=== PATIENT | male | born 1960 | race Caucasian/White ===

== ENCOUNTER 2017-07-31 02:44 | Day surgery (SDC) | payer MEDICARE, SELFPAY ==
[~2017-07-31] VITALS: Ht 193 cm; Wt 159.0 kg
[~2017-07-31 02:44] MED LIST: ACTOS; ASPI325 PO; ASPI81CH PO; ATOR40TA PO; ATOR80 PO; Abilify5 MG; BP PILL; Bactrim Ds Tab1 EACH PO; CEFU500 PO; CLIN300 PO; CLOP75 PO; FAMO20 PO; GABA300 PO; GLIP10 PO; GLIP5 PO; HYDACE10B PO; HYDACE5 PO; HYDACE7.5 PO; HYDCHL25 PO; HYDR1TAB94 PO; INSU100I6 SC; LEVEMIR FL100 UNIT/1 SC; LISHYD1012 PO; LOSA50 PO; Lacri-Lube S.O3.5 GM LEFTEYE; Lisinopril2.5 MG PO; MECL12.5 PO; METF500 PO; METO25 PO; Micro-K10 MEQ PO; NEBI5 PO; NITR.4SL SL; Norco 5-325 Ta1 EACH PO; OMEP20ER PO; OMEPRAZOLE MAGN20 MG PO; OXYC10TA19 PO; PANT20; PANT40 PO; PAXIL; PRAV20 PO; PRED20 PO; PSEU120ER PO; Percocet 7.5-31 EACH PO; Prilosec Otc20 MG; Prilosec Otc20 MG PO; SACC250C PO; SCOPTP TOP; SIMV40; SODCHL3.5O BOTHEYES; SPIR25 PO; SULTRIDS PO; VENL75ER PO; Valtrex1000 MG PO
[2017-07-31] MEDS ORDERED: PANT40 PO (10:45)
[2017-07-31] MEDS ORDERED: PREG75 PO (10:46)
[2017-07-31] MEDS ORDERED: DULO30 PO (10:46)
[2017-07-31 13:21] LABS: International Normalized Ratio 1.17; Prothrombin Time Results 12.2 Sec (9.7-11.5)
== END 2017-07-31 23:09 | disposition home or self-care (01) ==
LOC: MHTC 02:44 → LAB 02:44 → MHTC 12:53
PROVIDERS: Internal Medicine Interventional Cardiology
PROC: 065P3ZZ Destruction of Right Saphenous Vein, Percutaneous Approach (ICD-10-PCS; principal; 2017-07-31)
DX: I87.2 Venous insufficiency (chronic) (peripheral) (principal); E66.01 Morbid (severe) obesity due to excess calories; G47.33 Obstructive sleep apnea (adult) (pediatric); F41.9 Anxiety disorder, unspecified; F32.9 Major depressive disorder, single episode, unspecified; E11.42 Type 2 diabetes mellitus with diabetic polyneuropathy; I10 Essential (primary) hypertension; E78.5 Hyperlipidemia, unspecified; F17.210 Nicotine dependence, cigarettes, uncomplicated
CPT/HCPCS: 36415; 36475; 85610; 99152; C1769; C1888; C1894; J1644; J2250; J3010; J7040

== ENCOUNTER 2017-09-12 13:07 | Day surgery (SDC) | payer MEDICARE, SELFPAY ==
[~2017-09-12] VITALS: Ht 193 cm; Wt 157.0 kg
[~2017-09-12 13:07] MED LIST changes: +DULO30 PO; +PREG75 PO
[2017-09-12 13:34] LABS: International Normalized Ratio 1.12; Prothrombin Time Results 11.7 Sec (9.7-11.5)
== END 2017-09-12 22:53 | disposition home or self-care (01) ==
LOC: MHTC 13:07
PROVIDERS: Internal Medicine Interventional Cardiology
PROC: 065Q3ZZ Destruction of Left Saphenous Vein, Percutaneous Approach (ICD-10-PCS; principal; 2017-09-12)
DX: E11.51 Type 2 diabetes mellitus with diabetic peripheral angiopathy without gangrene (principal); I87.2 Venous insufficiency (chronic) (peripheral); E66.01 Morbid (severe) obesity due to excess calories; F41.9 Anxiety disorder, unspecified; F32.9 Major depressive disorder, single episode, unspecified; I10 Essential (primary) hypertension; E11.40 Type 2 diabetes mellitus with diabetic neuropathy, unspecified; F17.210 Nicotine dependence, cigarettes, uncomplicated
CPT/HCPCS: 36415; 36475; 85610; 99152; C1769; C1888; C1894; J1644; J2250; J3010; J7040

== ENCOUNTER 2017-12-23 13:25 | Emergency (ER) | payer MEDICARE ==
[~2017-12-23] VITALS: Ht 193 cm; Wt 167.8 kg
[~2017-12-23 13:25] MED LIST changes: +Augmentin 875-1 EACH PO
[2017-12-23 14:17] LABS: BASOPHILS ABSOLUTE AUTO 0.03 K/mm3 (0.00-0.23); BASOPHILS PERCENT AUTO 1 % (0-2); EOSINOPHILS ABSOLUTE AUTO 0.15 K/mm3 (0.00-0.68); EOSINOPHILS PERCENT AUTO 3 % (0-6); Hematocrit 42.2 % (37.0-53.0); Hemoglobin 13.9 g/dL (13.5-17.5); IMMATURE GRAN ABSOLUTE AUTO 0.01 K/mm3 (0.00-0.10); IMMATURE GRAN PERCENT AUTO 0 % (0-1); LYMPHOCYTES ABSOLUTE AUTO 1.24 K/mm3 (0.84-5.20); LYMPHOCYTES PERCENT AUTO 20 % (21-46); MONOCYTES ABSOLUTE AUTO 0.48 K/mm3 (0.16-1.47); MONOCYTES PERCENT AUTO 8 % (4-13); Mean Corpuscular HGB 29.7 pg (26.0-34.0); Mean Corpuscular HGB Conc 32.9 g/dL (31.5-36.5); Mean Corpuscular Volume 90 fL (80-100); Mean Platelet Volume 8.9 fL (9.1-12.4); NEUTROPHILS ABSOLUTE AUTO 4.16 K/mm3 (1.96-9.15); NEUTROPHILS PERCENT AUTO 69 % (41-73); Platelet Count 281 K/mm3 (150-400); RDW Coefficient Variation 13.6 % (11.7-14.2); RDW Standard Deviation 44.9 fL (35.1-46.3); Red Blood Cell Count 4.68 M/mm3 (4.30-5.90); White Blood Cell Count 6.07 K/mm3 (4.00-11.30)
[2017-12-23 14:33] LABS: Alanine Aminotransfer (ALT/SGP 18 U/L (12-78); Albumin, Blood 3.3 g/dL (3.4-5.0); Albumin/Globulin Ratio 0.8 (0.8-1.8); Alk Phos 101 U/L (50-136); Anion Gap 6 mmol/L (6-16); Aspartate Aminotrans (AST/SGOT 13 U/L (12-37); Bilirubin, Total 0.6 mg/dL (0.1-1.0); Blood Urea Nitrogen 18 mg/dL (8-24); Bun/Creatinine Ratio 20.5 (12.0-20.0); CO2, Blood 29 mmol/L (21-32); Calcium, Blood 8.3 mg/dL (8.5-10.1); Chloride, Blood 103 mmol/L (98-108); Creatinine, Blood 0.88 mg/dL (0.60-1.20); Globulin, Blood 4.1 g/dL (2.2-4.0); Glomerular Filtration Rate >60 (60-); Glucose, Blood 228 mg/dL (70-99); Potassium, Blood 4.2 mmol/L (3.5-5.5); Sodium, Blood 138 mmol/L (136-145); Total Protein, Blood 7.4 g/dL (6.4-8.2)
[2017-12-23 14:41] LABS: Source, Urine Clean Catch
[2017-12-23 14:44] LABS: Appearance, Urine Hazy (Clear); Bilirubin, Urine Neg (Neg); Blood, Urine 5+ (Neg); Color, Urine Yellow (P-Yellow); Glucose Qualitative, Urine Neg (Neg); Ketones, Urine Neg (Neg); Leukocyte Esterase, Urine 2+ (Neg); Nitrite, Urine Neg (Neg); Protein, Urine 3+ (Neg); Urobilinogen, Urine 1+ (Normal)
[2017-12-23 14:50] LABS: Bacteria Many /hpf; Squamous Epithelial Cells Few /hpf (Few); White Blood Cells, Urine TNTC /hpf (0-5)
[2017-12-23] MEDS ORDERED: KRATOM (15:55)
[2017-12-23] MEDS ORDERED: Keflex500 MG PO (16:09)
== END 2017-12-23 16:40 | disposition home or self-care (01) ==
LOC: ER 13:25
PROVIDERS: Emergency Medicine
DX: N39.0 Urinary tract infection, site not specified (principal); Z79.899 Other long term (current) drug therapy; Z79.82 Long term (current) use of aspirin; E11.40 Type 2 diabetes mellitus with diabetic neuropathy, unspecified; E66.01 Morbid (severe) obesity due to excess calories; F17.200 Nicotine dependence, unspecified, uncomplicated
CPT/HCPCS: 36415; 51798; 80053; 81001; 83690; 85025; 87077; 87086; 87186; 99283

== ENCOUNTER 2017-12-26 05:51 | Emergency (ER) | payer MEDICARE ==
[~2017-12-26] VITALS: Ht 193 cm; Wt 167.8 kg
[~2017-12-26 05:51] MED LIST changes: +KRATOM; +Keflex500 MG PO
[2017-12-26] MEDS ORDERED: NYST237S MT (06:37)
== END 2017-12-26 06:55 | disposition home or self-care (01) ==
LOC: ER 05:51
DX: J02.9 Acute pharyngitis, unspecified (principal); E11.40 Type 2 diabetes mellitus with diabetic neuropathy, unspecified; F17.200 Nicotine dependence, unspecified, uncomplicated; Z79.899 Other long term (current) drug therapy; Z79.82 Long term (current) use of aspirin
CPT/HCPCS: 87081; 99283

== ENCOUNTER 2017-12-29 16:08 | Emergency (ER) | payer MEDICARE ==
[~2017-12-29] VITALS: Ht 193 cm; Wt 167.8 kg
[~2017-12-29 16:08] MED LIST changes: +NYST237S MT
[2017-12-29] MEDS ORDERED: CEPH500 PO (17:25)
== END 2017-12-29 17:49 | disposition home or self-care (01) ==
LOC: ER 16:08
DX: S91.114A Laceration without foreign body of right lesser toe(s) without damage to nail, initial encounter (principal); W22.8XXA Striking against or struck by other objects, initial encounter; Z79.899 Other long term (current) drug therapy; Z79.82 Long term (current) use of aspirin; E66.9 Obesity, unspecified; E11.40 Type 2 diabetes mellitus with diabetic neuropathy, unspecified; F17.200 Nicotine dependence, unspecified, uncomplicated; Z68.42 Body mass index [BMI] 45.0-49.9, adult
CPT/HCPCS: 12001; 73660; 99282-25

== ENCOUNTER 2018-01-16 09:01 | Day surgery (SDC) | payer MEDICARE ==
[~2018-01-16 09:01] MED LIST changes: +CEPH500 PO
== END 2018-01-16 22:58 | disposition home or self-care (01) ==
LOC: RAD 09:01
DX: M54.5 Low back pain (principal); M47.816 Spondylosis without myelopathy or radiculopathy, lumbar region; Z95.0 Presence of cardiac pacemaker; Z98.1 Arthrodesis status
CPT/HCPCS: 62304; 72132; Q9966

== ENCOUNTER → 2018-08-07 | Outpatient (CLI) | payer MEDICARE ==
[2018-08-07 12:49] LABS: Source, Urine Clean Catch
[2018-08-07 14:14] LABS: Appearance, Urine Hazy (Clear); Bilirubin, Urine Neg (Neg); Blood, Urine 5+ (Neg); Color, Urine Yellow (P-Yellow); Glucose Qualitative, Urine Neg (Neg); Ketones, Urine Neg (Neg); Leukocyte Esterase, Urine 1+ (Neg); Nitrite, Urine Neg (Neg); Protein, Urine 1+ (Neg); Specific Gravity, Urine 1.015 (1.003-1.022); Urobilinogen, Urine 1+ (Normal)
[2018-08-07 15:10] LABS: Bacteria Few /hpf; Red Blood Cells, Urine 50-100 /hpf (0-2); Squamous Epithelial Cells Few /hpf (Few)
== END | disposition home or self-care (01) ==
LOC: LAB SHORT 12:46 → LAB 12:46
PROVIDERS: Family Medicine
DX: R31.9 Hematuria, unspecified (principal)
CPT/HCPCS: 81001; 87077; 87086; 87186

== ENCOUNTER 2020-03-30 08:53 | Day surgery (SDC) | payer MEDICARE | END 2020-03-30 13:30 | disposition home or self-care (01) | LOC: WOUND | DX: E11.621 Type 2 diabetes mellitus with foot ulcer (principal); E11.622 Type 2 diabetes mellitus with other skin ulcer; L97.521 Non-pressure chronic ulcer of other part of left foot limited to breakdown of skin; L97.312 Non-pressure chronic ulcer of right ankle with fat layer exposed; E11.42 Type 2 diabetes mellitus with diabetic polyneuropathy; M86.671 Other chronic osteomyelitis, right ankle and foot; E11.59 Type 2 diabetes mellitus with other circulatory complications; L97.812 Non-pressure chronic ulcer of other part of right lower leg with fat layer exposed; L97.822 Non-pressure chronic ulcer of other part of left lower leg with fat layer exposed; I10 Essential (primary) hypertension; K21.9 Gastro-esophageal reflux disease without esophagitis; G47.33 Obstructive sleep apnea (adult) (pediatric); Z79.899 Other long term (current) drug therapy; F17.210 Nicotine dependence, cigarettes, uncomplicated; Z79.82 Long term (current) use of aspirin | CPT/HCPCS: G0463 ==

== ENCOUNTER 2020-04-06 10:01 | Day surgery (SDC) | payer MEDICARE | END 2020-04-06 22:56 | disposition home or self-care (01) | LOC: WOUND 10:01 | DX: E11.621 Type 2 diabetes mellitus with foot ulcer (principal); E11.622 Type 2 diabetes mellitus with other skin ulcer; L97.421 Non-pressure chronic ulcer of left heel and midfoot limited to breakdown of skin; L97.312 Non-pressure chronic ulcer of right ankle with fat layer exposed; M86.671 Other chronic osteomyelitis, right ankle and foot; E11.59 Type 2 diabetes mellitus with other circulatory complications; L97.812 Non-pressure chronic ulcer of other part of right lower leg with fat layer exposed; L97.822 Non-pressure chronic ulcer of other part of left lower leg with fat layer exposed; K21.9 Gastro-esophageal reflux disease without esophagitis; G47.33 Obstructive sleep apnea (adult) (pediatric); I10 Essential (primary) hypertension; Z79.899 Other long term (current) drug therapy; Z79.82 Long term (current) use of aspirin ==

== ENCOUNTER 2020-04-13 00:25 | Day surgery (SDC) | payer MEDICARE | END 2020-04-13 22:58 | disposition home or self-care (01) | LOC: WOUND 00:25 | DX: E11.621 Type 2 diabetes mellitus with foot ulcer (principal); E11.622 Type 2 diabetes mellitus with other skin ulcer; L97.421 Non-pressure chronic ulcer of left heel and midfoot limited to breakdown of skin; L97.312 Non-pressure chronic ulcer of right ankle with fat layer exposed; E11.59 Type 2 diabetes mellitus with other circulatory complications; M86.671 Other chronic osteomyelitis, right ankle and foot; L97.812 Non-pressure chronic ulcer of other part of right lower leg with fat layer exposed; L97.822 Non-pressure chronic ulcer of other part of left lower leg with fat layer exposed; I10 Essential (primary) hypertension; K21.9 Gastro-esophageal reflux disease without esophagitis; G47.33 Obstructive sleep apnea (adult) (pediatric); I25.10 Atherosclerotic heart disease of native coronary artery without angina pectoris; E11.42 Type 2 diabetes mellitus with diabetic polyneuropathy; Z79.899 Other long term (current) drug therapy; Z79.82 Long term (current) use of aspirin ==

== ENCOUNTER 2020-04-22 00:32 | Day surgery (SDC) | payer MEDICARE | END 2020-04-22 23:15 | disposition home or self-care (01) | LOC: WOUND 00:32 | DX: E11.621 Type 2 diabetes mellitus with foot ulcer (principal); L97.422 Non-pressure chronic ulcer of left heel and midfoot with fat layer exposed; E11.622 Type 2 diabetes mellitus with other skin ulcer; L97.312 Non-pressure chronic ulcer of right ankle with fat layer exposed; L97.822 Non-pressure chronic ulcer of other part of left lower leg with fat layer exposed; E11.52 Type 2 diabetes mellitus with diabetic peripheral angiopathy with gangrene; I96 Gangrene, not elsewhere classified; E11.69 Type 2 diabetes mellitus with other specified complication; M86.8X7 Other osteomyelitis, ankle and foot; E11.36 Type 2 diabetes mellitus with diabetic cataract; E11.40 Type 2 diabetes mellitus with diabetic neuropathy, unspecified; E11.59 Type 2 diabetes mellitus with other circulatory complications; H26.9 Unspecified cataract; J32.9 Chronic sinusitis, unspecified; J44.9 Chronic obstructive pulmonary disease, unspecified; G47.30 Sleep apnea, unspecified; I49.9 Cardiac arrhythmia, unspecified; I25.10 Atherosclerotic heart disease of native coronary artery without angina pectoris; I10 Essential (primary) hypertension; M19.90 Unspecified osteoarthritis, unspecified site; Z79.82 Long term (current) use of aspirin; Z79.899 Other long term (current) drug therapy | CPT/HCPCS: G0463 ==

== ENCOUNTER 2020-04-29 06:39 | Day surgery (SDC) | payer MEDICARE | END 2020-04-29 22:52 | disposition home or self-care (01) | LOC: WOUND 06:39 | DX: E11.621 Type 2 diabetes mellitus with foot ulcer (principal); L97.422 Non-pressure chronic ulcer of left heel and midfoot with fat layer exposed; E11.622 Type 2 diabetes mellitus with other skin ulcer; L97.312 Non-pressure chronic ulcer of right ankle with fat layer exposed; L97.812 Non-pressure chronic ulcer of other part of right lower leg with fat layer exposed; L97.822 Non-pressure chronic ulcer of other part of left lower leg with fat layer exposed; E11.52 Type 2 diabetes mellitus with diabetic peripheral angiopathy with gangrene; I96 Gangrene, not elsewhere classified; E11.69 Type 2 diabetes mellitus with other specified complication; M86.8X7 Other osteomyelitis, ankle and foot; E11.59 Type 2 diabetes mellitus with other circulatory complications; E11.36 Type 2 diabetes mellitus with diabetic cataract; H26.9 Unspecified cataract; J44.9 Chronic obstructive pulmonary disease, unspecified; G47.30 Sleep apnea, unspecified; I25.10 Atherosclerotic heart disease of native coronary artery without angina pectoris; I10 Essential (primary) hypertension; M19.90 Unspecified osteoarthritis, unspecified site; E11.40 Type 2 diabetes mellitus with diabetic neuropathy, unspecified; Z79.82 Long term (current) use of aspirin; Z79.899 Other long term (current) drug therapy | CPT/HCPCS: G0463 ==

== ENCOUNTER 2020-05-13 00:30 | Day surgery (SDC) | payer MEDICARE | END 2020-05-13 22:46 | disposition home or self-care (01) | LOC: WOUND 00:30 | DX: E11.621 Type 2 diabetes mellitus with foot ulcer (principal); L97.422 Non-pressure chronic ulcer of left heel and midfoot with fat layer exposed; E11.622 Type 2 diabetes mellitus with other skin ulcer; L97.312 Non-pressure chronic ulcer of right ankle with fat layer exposed; L97.822 Non-pressure chronic ulcer of other part of left lower leg with fat layer exposed; E11.52 Type 2 diabetes mellitus with diabetic peripheral angiopathy with gangrene; I96 Gangrene, not elsewhere classified; E11.59 Type 2 diabetes mellitus with other circulatory complications; E11.42 Type 2 diabetes mellitus with diabetic polyneuropathy; E11.69 Type 2 diabetes mellitus with other specified complication; M86.8X9 Other osteomyelitis, unspecified sites; M54.5 Low back pain; E11.36 Type 2 diabetes mellitus with diabetic cataract; H26.9 Unspecified cataract; E78.1 Pure hyperglyceridemia; I10 Essential (primary) hypertension; G47.33 Obstructive sleep apnea (adult) (pediatric); I25.10 Atherosclerotic heart disease of native coronary artery without angina pectoris; K21.9 Gastro-esophageal reflux disease without esophagitis; F41.9 Anxiety disorder, unspecified; F32.9 Major depressive disorder, single episode, unspecified; M89.29 Other disorders of bone development and growth, multiple sites; J44.9 Chronic obstructive pulmonary disease, unspecified; M19.90 Unspecified osteoarthritis, unspecified site; G51.0 Bell's palsy; Z79.82 Long term (current) use of aspirin; Z79.899 Other long term (current) drug therapy; Z86.718 Personal history of other venous thrombosis and embolism ==

== ENCOUNTER 2020-05-20 00:25 | Day surgery (SDC) | payer MEDICARE | END 2020-05-20 22:49 | disposition home or self-care (01) | LOC: WOUND 00:25 | DX: E11.621 Type 2 diabetes mellitus with foot ulcer (principal); L97.421 Non-pressure chronic ulcer of left heel and midfoot limited to breakdown of skin; E11.622 Type 2 diabetes mellitus with other skin ulcer; L97.822 Non-pressure chronic ulcer of other part of left lower leg with fat layer exposed; L97.312 Non-pressure chronic ulcer of right ankle with fat layer exposed; G89.29 Other chronic pain; M54.5 Low back pain; E11.42 Type 2 diabetes mellitus with diabetic polyneuropathy; E78.1 Pure hyperglyceridemia; I10 Essential (primary) hypertension; G47.33 Obstructive sleep apnea (adult) (pediatric); I25.10 Atherosclerotic heart disease of native coronary artery without angina pectoris; G51.0 Bell's palsy; K21.9 Gastro-esophageal reflux disease without esophagitis | CPT/HCPCS: 87071; 87075; 87102; 87205; A9270 ==

== ENCOUNTER 2020-05-22 02:01 | Day surgery (SDC) | payer MEDICARE | END 2020-05-22 23:56 | disposition home or self-care (01) | LOC: WOUND 02:01 | DX: E11.621 Type 2 diabetes mellitus with foot ulcer (principal); L97.421 Non-pressure chronic ulcer of left heel and midfoot limited to breakdown of skin; E11.622 Type 2 diabetes mellitus with other skin ulcer; L97.312 Non-pressure chronic ulcer of right ankle with fat layer exposed; L97.822 Non-pressure chronic ulcer of other part of left lower leg with fat layer exposed; E11.59 Type 2 diabetes mellitus with other circulatory complications ==

== ENCOUNTER 2020-05-27 00:43 | Day surgery (SDC) | payer MEDICARE | END 2020-05-27 23:12 | disposition home or self-care (01) | LOC: WOUND 00:43 | DX: E11.621 Type 2 diabetes mellitus with foot ulcer (principal); L97.422 Non-pressure chronic ulcer of left heel and midfoot with fat layer exposed; E11.622 Type 2 diabetes mellitus with other skin ulcer; L97.312 Non-pressure chronic ulcer of right ankle with fat layer exposed; L97.222 Non-pressure chronic ulcer of left calf with fat layer exposed; L97.822 Non-pressure chronic ulcer of other part of left lower leg with fat layer exposed; E11.52 Type 2 diabetes mellitus with diabetic peripheral angiopathy with gangrene; I96 Gangrene, not elsewhere classified; E11.59 Type 2 diabetes mellitus with other circulatory complications; E11.42 Type 2 diabetes mellitus with diabetic polyneuropathy; E11.69 Type 2 diabetes mellitus with other specified complication; M86.8X9 Other osteomyelitis, unspecified sites; I10 Essential (primary) hypertension; E11.36 Type 2 diabetes mellitus with diabetic cataract; H26.9 Unspecified cataract; J44.9 Chronic obstructive pulmonary disease, unspecified; I25.10 Atherosclerotic heart disease of native coronary artery without angina pectoris; G47.33 Obstructive sleep apnea (adult) (pediatric); K21.9 Gastro-esophageal reflux disease without esophagitis; G89.29 Other chronic pain; M54.5 Low back pain; Z79.82 Long term (current) use of aspirin; Z79.899 Other long term (current) drug therapy | CPT/HCPCS: A9270 ==

== ENCOUNTER → 2020-05-30 | Outpatient (CLI) | payer MEDICARE ==
[~2020-05-30] MED LIST changes: +AMOCLA875 PO; +Roxicodone5 MG PO
[2020-05-30 12:56] LABS: BASOPHILS ABSOLUTE AUTO 0.03 K/mm3 (0.00-0.23); BASOPHILS PERCENT AUTO 1 % (0-2); EOSINOPHILS ABSOLUTE AUTO 0.12 K/mm3 (0.00-0.68); EOSINOPHILS PERCENT AUTO 2 % (0-6); Hematocrit 40.8 % (37.0-53.0); Hemoglobin 13.5 g/dL (13.5-17.5); IMMATURE GRAN ABSOLUTE AUTO 0.01 K/mm3 (0.00-0.10); IMMATURE GRAN PERCENT AUTO 0 % (0-1); LYMPHOCYTES ABSOLUTE AUTO 1.45 K/mm3 (0.84-5.20); LYMPHOCYTES PERCENT AUTO 25 % (21-46); MONOCYTES ABSOLUTE AUTO 0.35 K/mm3 (0.16-1.47); MONOCYTES PERCENT AUTO 6 % (4-13); Mean Corpuscular HGB 28.6 pg (26.0-34.0); Mean Corpuscular HGB Conc 33.1 g/dL (31.5-36.5); Mean Corpuscular Volume 86 fL (80-100); Mean Platelet Volume 8.9 fL (9.1-12.4); NEUTROPHILS ABSOLUTE AUTO 3.75 K/mm3 (1.96-9.15); NEUTROPHILS PERCENT AUTO 66 % (41-73); Platelet Count 324 K/mm3 (150-400); RDW Coefficient Variation 13.3 % (11.7-14.2); Red Blood Cell Count 4.72 M/mm3 (4.30-5.90); White Blood Cell Count 5.71 K/mm3 (4.00-11.30)
[2020-05-30 13:00] LABS: Anion Gap 4 mmol/L (6-16); Blood Urea Nitrogen 15 mg/dL (8-24); Bun/Creatinine Ratio 14.3 (12.0-20.0); CO2, Blood 30 mmol/L (21-32); Calcium, Blood 8.7 mg/dL (8.5-10.1); Chloride, Blood 93 mmol/L (98-108); Creatinine, Blood 1.05 mg/dL (0.60-1.20); Glomerular Filtration Rate >60 (60-); Glucose, Blood 353 mg/dL (70-99); Potassium, Blood 4.7 mmol/L (3.5-5.5); Sodium, Blood 127 mmol/L (136-145)
== END | disposition home or self-care (01) ==
LOC: LAB 12:48 → LAB SHORT 12:48
PROVIDERS: Physician Assistant Surgical
DX: R73.9 Hyperglycemia, unspecified (principal)
CPT/HCPCS: 80048; 83036; 85025

== ENCOUNTER 2020-06-02 00:21 | Day surgery (SDC) | payer MEDICARE ==
[~2020-06-02 00:21] MED LIST changes: -AMOCLA875 PO; -Roxicodone5 MG PO
== END 2020-06-02 22:54 | disposition home or self-care (01) ==
LOC: WOUND 00:21
DX: E11.621 Type 2 diabetes mellitus with foot ulcer (principal); E11.622 Type 2 diabetes mellitus with other skin ulcer; L97.421 Non-pressure chronic ulcer of left heel and midfoot limited to breakdown of skin; L97.312 Non-pressure chronic ulcer of right ankle with fat layer exposed; L97.822 Non-pressure chronic ulcer of other part of left lower leg with fat layer exposed; E11.59 Type 2 diabetes mellitus with other circulatory complications
CPT/HCPCS: A9270

== ENCOUNTER 2020-06-10 00:14 | Day surgery (SDC) | payer MEDICARE | END 2020-06-10 23:45 | disposition home or self-care (01) | LOC: WOUND 00:14 | DX: E11.621 Type 2 diabetes mellitus with foot ulcer (principal); L97.422 Non-pressure chronic ulcer of left heel and midfoot with fat layer exposed; E11.622 Type 2 diabetes mellitus with other skin ulcer; L97.312 Non-pressure chronic ulcer of right ankle with fat layer exposed; L97.221 Non-pressure chronic ulcer of left calf limited to breakdown of skin; E11.59 Type 2 diabetes mellitus with other circulatory complications; K21.9 Gastro-esophageal reflux disease without esophagitis; E11.42 Type 2 diabetes mellitus with diabetic polyneuropathy; I10 Essential (primary) hypertension; I25.10 Atherosclerotic heart disease of native coronary artery without angina pectoris; F41.8 Other specified anxiety disorders; Z87.81 Personal history of (healed) traumatic fracture; Z79.2 Long term (current) use of antibiotics | CPT/HCPCS: A9270 ==

== ENCOUNTER 2020-06-16 01:02 | Day surgery (SDC) | payer MEDICARE | END 2020-06-16 22:55 | disposition home or self-care (01) | LOC: WOUND 01:02 | DX: E11.621 Type 2 diabetes mellitus with foot ulcer (principal); E11.622 Type 2 diabetes mellitus with other skin ulcer; L97.422 Non-pressure chronic ulcer of left heel and midfoot with fat layer exposed; L97.221 Non-pressure chronic ulcer of left calf limited to breakdown of skin; L97.312 Non-pressure chronic ulcer of right ankle with fat layer exposed; E11.59 Type 2 diabetes mellitus with other circulatory complications; E11.42 Type 2 diabetes mellitus with diabetic polyneuropathy; I10 Essential (primary) hypertension; I25.10 Atherosclerotic heart disease of native coronary artery without angina pectoris; G47.33 Obstructive sleep apnea (adult) (pediatric); K21.9 Gastro-esophageal reflux disease without esophagitis; M54.5 Low back pain; F41.8 Other specified anxiety disorders; Z87.81 Personal history of (healed) traumatic fracture; Z79.2 Long term (current) use of antibiotics | CPT/HCPCS: 73630; A9270 ==

== ENCOUNTER 2020-06-23 01:12 | Day surgery (SDC) | payer MEDICARE | END 2020-06-23 23:50 | disposition home or self-care (01) | LOC: WOUND 01:12 | DX: E11.621 Type 2 diabetes mellitus with foot ulcer (principal); E11.622 Type 2 diabetes mellitus with other skin ulcer; L97.422 Non-pressure chronic ulcer of left heel and midfoot with fat layer exposed; L97.312 Non-pressure chronic ulcer of right ankle with fat layer exposed; L97.221 Non-pressure chronic ulcer of left calf limited to breakdown of skin; E11.42 Type 2 diabetes mellitus with diabetic polyneuropathy; I10 Essential (primary) hypertension; G47.33 Obstructive sleep apnea (adult) (pediatric); E78.1 Pure hyperglyceridemia; I25.10 Atherosclerotic heart disease of native coronary artery without angina pectoris; K21.9 Gastro-esophageal reflux disease without esophagitis; G51.0 Bell's palsy | CPT/HCPCS: A9270 ==

== ENCOUNTER 2020-07-01 00:28 | Day surgery (SDC) | payer MEDICARE | END 2020-07-01 22:50 | disposition home or self-care (01) | LOC: WOUND 00:28 | DX: E11.621 Type 2 diabetes mellitus with foot ulcer (principal); L97.422 Non-pressure chronic ulcer of left heel and midfoot with fat layer exposed; E11.622 Type 2 diabetes mellitus with other skin ulcer; L97.312 Non-pressure chronic ulcer of right ankle with fat layer exposed; E11.59 Type 2 diabetes mellitus with other circulatory complications; I10 Essential (primary) hypertension; E11.42 Type 2 diabetes mellitus with diabetic polyneuropathy | CPT/HCPCS: A9270 ==

== ENCOUNTER 2020-07-07 00:51 | Day surgery (SDC) | payer MEDICARE | END 2020-07-07 23:26 | disposition home or self-care (01) | LOC: WOUND 00:51 | DX: E11.621 Type 2 diabetes mellitus with foot ulcer (principal); L97.422 Non-pressure chronic ulcer of left heel and midfoot with fat layer exposed; E11.622 Type 2 diabetes mellitus with other skin ulcer; L97.312 Non-pressure chronic ulcer of right ankle with fat layer exposed; L97.822 Non-pressure chronic ulcer of other part of left lower leg with fat layer exposed; E11.59 Type 2 diabetes mellitus with other circulatory complications ==

== ENCOUNTER 2020-07-14 00:14 | Day surgery (SDC) | payer MEDICARE | END 2020-07-14 22:57 | disposition home or self-care (01) | LOC: WOUND 00:14 | DX: E11.621 Type 2 diabetes mellitus with foot ulcer (principal); L97.421 Non-pressure chronic ulcer of left heel and midfoot limited to breakdown of skin; L97.312 Non-pressure chronic ulcer of right ankle with fat layer exposed; E11.59 Type 2 diabetes mellitus with other circulatory complications; E11.42 Type 2 diabetes mellitus with diabetic polyneuropathy; I10 Essential (primary) hypertension; I25.10 Atherosclerotic heart disease of native coronary artery without angina pectoris; K21.9 Gastro-esophageal reflux disease without esophagitis; S62.309D Unspecified fracture of unspecified metacarpal bone, subsequent encounter for fracture with routine healing; X58.XXXD Exposure to other specified factors, subsequent encounter ==

== ENCOUNTER 2020-07-21 00:31 | Day surgery (SDC) | payer MEDICARE | END 2020-07-21 22:49 | disposition home or self-care (01) | LOC: WOUND 00:31 | DX: E11.621 Type 2 diabetes mellitus with foot ulcer (principal); E11.622 Type 2 diabetes mellitus with other skin ulcer; L97.422 Non-pressure chronic ulcer of left heel and midfoot with fat layer exposed; L97.312 Non-pressure chronic ulcer of right ankle with fat layer exposed; L97.822 Non-pressure chronic ulcer of other part of left lower leg with fat layer exposed; E11.42 Type 2 diabetes mellitus with diabetic polyneuropathy; E11.59 Type 2 diabetes mellitus with other circulatory complications; E78.1 Pure hyperglyceridemia; I10 Essential (primary) hypertension; G47.33 Obstructive sleep apnea (adult) (pediatric); I25.10 Atherosclerotic heart disease of native coronary artery without angina pectoris; K21.9 Gastro-esophageal reflux disease without esophagitis | CPT/HCPCS: 73650; A9270 ==

== ENCOUNTER 2020-07-31 02:05 | Day surgery (SDC) | payer MEDICARE | END 2020-07-31 22:48 | disposition home or self-care (01) | LOC: WOUND 02:05 | DX: E11.621 Type 2 diabetes mellitus with foot ulcer (principal); L97.422 Non-pressure chronic ulcer of left heel and midfoot with fat layer exposed; L97.512 Non-pressure chronic ulcer of other part of right foot with fat layer exposed; E11.622 Type 2 diabetes mellitus with other skin ulcer; L97.822 Non-pressure chronic ulcer of other part of left lower leg with fat layer exposed; E11.59 Type 2 diabetes mellitus with other circulatory complications ==

== ENCOUNTER 2020-08-09 18:51 | Emergency (ER) | payer MEDICARE ==
[~2020-08-09] VITALS: Ht 190.5 cm; Wt 147.4 kg
[2020-08-09] MEDS ORDERED: Roxicodone5 MG PO (22:57)
[2020-08-09] MEDS ORDERED: AMOCLA875 PO (22:57)
== END 2020-08-09 23:25 | disposition home or self-care (01) ==
LOC: ER 18:51
DX: S01.511A Laceration without foreign body of lip, initial encounter (principal); S03.2XXA Dislocation of tooth, initial encounter; Z79.82 Long term (current) use of aspirin; Z79.899 Other long term (current) drug therapy; W06.XXXA Fall from bed, initial encounter
CPT/HCPCS: 70486; 72125; 93005; 93010; 96374; 99285-25; A9270; J1170

== ENCOUNTER → 2021-03-11 | Outpatient (CLI) | payer MEDICARE ==
[~2021-03-11] MED LIST changes: +AMOCLA875 PO; +Roxicodone5 MG PO
== END ==
LOC: LAB SHORT 09:38 → LAB 09:38
DX: S51.802A Unspecified open wound of left forearm, initial encounter (principal)
CPT/HCPCS: 87070; 87075; 87205

== ENCOUNTER 2021-04-07 09:11 | Day surgery (SDC) | payer MEDICARE | END 2021-04-07 23:13 | disposition home or self-care (01) | LOC: WOUND 09:11 | DX: E11.622 Type 2 diabetes mellitus with other skin ulcer (principal); L97.812 Non-pressure chronic ulcer of other part of right lower leg with fat layer exposed; L97.312 Non-pressure chronic ulcer of right ankle with fat layer exposed; E11.621 Type 2 diabetes mellitus with foot ulcer; E11.59 Type 2 diabetes mellitus with other circulatory complications; I87.2 Venous insufficiency (chronic) (peripheral); E11.42 Type 2 diabetes mellitus with diabetic polyneuropathy; I10 Essential (primary) hypertension; I25.10 Atherosclerotic heart disease of native coronary artery without angina pectoris; K21.9 Gastro-esophageal reflux disease without esophagitis; G47.33 Obstructive sleep apnea (adult) (pediatric) | CPT/HCPCS: G0463 ==

== ENCOUNTER 2021-04-14 00:39 | Day surgery (SDC) | payer MEDICARE | END 2021-04-14 23:25 | disposition home or self-care (01) | LOC: WOUND 00:39 | DX: E11.621 Type 2 diabetes mellitus with foot ulcer (principal); L97.819 Non-pressure chronic ulcer of other part of right lower leg with unspecified severity; I87.2 Venous insufficiency (chronic) (peripheral) ==

== ENCOUNTER 2021-04-21 02:54 | Day surgery (SDC) | payer MEDICARE | END 2021-04-21 23:06 | disposition home or self-care (01) | LOC: WOUND 02:54 | DX: E11.622 Type 2 diabetes mellitus with other skin ulcer (principal); L97.312 Non-pressure chronic ulcer of right ankle with fat layer exposed; L97.812 Non-pressure chronic ulcer of other part of right lower leg with fat layer exposed; I87.2 Venous insufficiency (chronic) (peripheral); I10 Essential (primary) hypertension; E11.42 Type 2 diabetes mellitus with diabetic polyneuropathy; E78.1 Pure hyperglyceridemia; I25.10 Atherosclerotic heart disease of native coronary artery without angina pectoris | CPT/HCPCS: A9270 ==

== ENCOUNTER 2021-04-28 05:32 | Day surgery (SDC) | payer MEDICARE | END 2021-04-28 23:18 | disposition home or self-care (01) | LOC: WOUND 05:32 | DX: E11.622 Type 2 diabetes mellitus with other skin ulcer (principal); L97.312 Non-pressure chronic ulcer of right ankle with fat layer exposed; L97.812 Non-pressure chronic ulcer of other part of right lower leg with fat layer exposed; E11.621 Type 2 diabetes mellitus with foot ulcer; E11.59 Type 2 diabetes mellitus with other circulatory complications; I87.2 Venous insufficiency (chronic) (peripheral) ==

== ENCOUNTER 2021-05-12 05:58 | Day surgery (SDC) | payer MEDICARE | END 2021-05-12 23:44 | disposition home or self-care (01) | LOC: WOUND 05:58 | DX: E11.621 Type 2 diabetes mellitus with foot ulcer (principal); L97.812 Non-pressure chronic ulcer of other part of right lower leg with fat layer exposed; E11.622 Type 2 diabetes mellitus with other skin ulcer; L97.312 Non-pressure chronic ulcer of right ankle with fat layer exposed; I87.311 Chronic venous hypertension (idiopathic) with ulcer of right lower extremity; I87.2 Venous insufficiency (chronic) (peripheral); E11.59 Type 2 diabetes mellitus with other circulatory complications; I10 Essential (primary) hypertension; K21.9 Gastro-esophageal reflux disease without esophagitis; G47.33 Obstructive sleep apnea (adult) (pediatric); I25.10 Atherosclerotic heart disease of native coronary artery without angina pectoris ==

== ENCOUNTER 2021-07-12 05:59 | Day surgery (SDC) | payer MEDICARE | END 2021-07-12 23:31 | disposition home or self-care (01) | LOC: WOUND 05:59 | DX: E11.622 Type 2 diabetes mellitus with other skin ulcer (principal); L97.812 Non-pressure chronic ulcer of other part of right lower leg with fat layer exposed; L97.822 Non-pressure chronic ulcer of other part of left lower leg with fat layer exposed; E11.621 Type 2 diabetes mellitus with foot ulcer; E11.59 Type 2 diabetes mellitus with other circulatory complications; I87.311 Chronic venous hypertension (idiopathic) with ulcer of right lower extremity; I87.2 Venous insufficiency (chronic) (peripheral); I10 Essential (primary) hypertension; I25.10 Atherosclerotic heart disease of native coronary artery without angina pectoris; E11.42 Type 2 diabetes mellitus with diabetic polyneuropathy ==

== ENCOUNTER 2021-07-19 02:29 | Day surgery (SDC) | payer MEDICARE | END 2021-07-19 22:47 | disposition home or self-care (01) | LOC: WOUND 02:29 | DX: E11.622 Type 2 diabetes mellitus with other skin ulcer (principal); L97.812 Non-pressure chronic ulcer of other part of right lower leg with fat layer exposed; I87.311 Chronic venous hypertension (idiopathic) with ulcer of right lower extremity; I10 Essential (primary) hypertension; I25.10 Atherosclerotic heart disease of native coronary artery without angina pectoris; E11.621 Type 2 diabetes mellitus with foot ulcer; I87.2 Venous insufficiency (chronic) (peripheral); E11.59 Type 2 diabetes mellitus with other circulatory complications ==

== ENCOUNTER 2021-07-26 01:32 | Day surgery (SDC) | payer MEDICARE | END 2021-07-26 23:43 | disposition home or self-care (01) | LOC: WOUND 01:32 | DX: E11.622 Type 2 diabetes mellitus with other skin ulcer (principal); L97.812 Non-pressure chronic ulcer of other part of right lower leg with fat layer exposed; E11.621 Type 2 diabetes mellitus with foot ulcer; I87.311 Chronic venous hypertension (idiopathic) with ulcer of right lower extremity; I87.2 Venous insufficiency (chronic) (peripheral); E11.59 Type 2 diabetes mellitus with other circulatory complications; E11.42 Type 2 diabetes mellitus with diabetic polyneuropathy; I10 Essential (primary) hypertension; I25.10 Atherosclerotic heart disease of native coronary artery without angina pectoris; G51.0 Bell's palsy | CPT/HCPCS: A9270 ==

== ENCOUNTER 2021-08-02 02:37 | Day surgery (SDC) | payer MEDICARE | END 2021-08-02 23:36 | disposition home or self-care (01) | LOC: WOUND 02:37 | DX: E11.622 Type 2 diabetes mellitus with other skin ulcer (principal); L97.819 Non-pressure chronic ulcer of other part of right lower leg with unspecified severity; E11.621 Type 2 diabetes mellitus with foot ulcer; L97.509 Non-pressure chronic ulcer of other part of unspecified foot with unspecified severity; I87.311 Chronic venous hypertension (idiopathic) with ulcer of right lower extremity; I87.2 Venous insufficiency (chronic) (peripheral); E11.59 Type 2 diabetes mellitus with other circulatory complications ==

== ENCOUNTER 2021-08-09 01:17 | Day surgery (SDC) | payer MEDICARE | END 2021-08-09 11:59 | disposition home or self-care (01) | LOC: WOUND 01:17 | DX: E11.622 Type 2 diabetes mellitus with other skin ulcer (principal); L97.812 Non-pressure chronic ulcer of other part of right lower leg with fat layer exposed; E11.621 Type 2 diabetes mellitus with foot ulcer; E11.59 Type 2 diabetes mellitus with other circulatory complications; I87.311 Chronic venous hypertension (idiopathic) with ulcer of right lower extremity; I87.2 Venous insufficiency (chronic) (peripheral); E11.42 Type 2 diabetes mellitus with diabetic polyneuropathy; I10 Essential (primary) hypertension; I25.10 Atherosclerotic heart disease of native coronary artery without angina pectoris | CPT/HCPCS: G0463 ==

== ENCOUNTER 2021-08-23 02:05 | Day surgery (SDC) | payer MEDICARE | END 2021-08-23 22:55 | disposition home or self-care (01) | LOC: WOUND 02:05 | DX: E11.622 Type 2 diabetes mellitus with other skin ulcer (principal); I87.311 Chronic venous hypertension (idiopathic) with ulcer of right lower extremity; L97.812 Non-pressure chronic ulcer of other part of right lower leg with fat layer exposed; E11.59 Type 2 diabetes mellitus with other circulatory complications; I87.2 Venous insufficiency (chronic) (peripheral); E11.42 Type 2 diabetes mellitus with diabetic polyneuropathy; I10 Essential (primary) hypertension; G47.33 Obstructive sleep apnea (adult) (pediatric); I25.10 Atherosclerotic heart disease of native coronary artery without angina pectoris; K21.9 Gastro-esophageal reflux disease without esophagitis; E78.1 Pure hyperglyceridemia | CPT/HCPCS: A9270; G0463 ==

== ENCOUNTER 2021-08-30 01:16 | Day surgery (SDC) | payer MEDICARE | END 2021-08-30 23:10 | disposition home or self-care (01) | LOC: WOUND 01:16 | DX: E11.622 Type 2 diabetes mellitus with other skin ulcer (principal); I87.311 Chronic venous hypertension (idiopathic) with ulcer of right lower extremity; L97.812 Non-pressure chronic ulcer of other part of right lower leg with fat layer exposed; I87.2 Venous insufficiency (chronic) (peripheral); E11.42 Type 2 diabetes mellitus with diabetic polyneuropathy; E78.1 Pure hyperglyceridemia; I10 Essential (primary) hypertension; G47.33 Obstructive sleep apnea (adult) (pediatric); I25.10 Atherosclerotic heart disease of native coronary artery without angina pectoris; K21.9 Gastro-esophageal reflux disease without esophagitis | CPT/HCPCS: G0463 ==

== ENCOUNTER 2021-09-13 01:07 | Day surgery (SDC) | payer MEDICARE | END 2021-09-13 23:31 | disposition home or self-care (01) | LOC: WOUND 01:07 | DX: I87.311 Chronic venous hypertension (idiopathic) with ulcer of right lower extremity (principal); E11.622 Type 2 diabetes mellitus with other skin ulcer; L97.812 Non-pressure chronic ulcer of other part of right lower leg with fat layer exposed; L97.312 Non-pressure chronic ulcer of right ankle with fat layer exposed; I87.2 Venous insufficiency (chronic) (peripheral); E11.42 Type 2 diabetes mellitus with diabetic polyneuropathy; I10 Essential (primary) hypertension; G47.33 Obstructive sleep apnea (adult) (pediatric); I25.10 Atherosclerotic heart disease of native coronary artery without angina pectoris; K21.9 Gastro-esophageal reflux disease without esophagitis ==

== ENCOUNTER 2021-09-27 03:17 | Day surgery (SDC) | payer MEDICARE | END 2021-09-27 23:34 | disposition home or self-care (01) | LOC: WOUND 03:17 | DX: E11.622 Type 2 diabetes mellitus with other skin ulcer (principal); L97.812 Non-pressure chronic ulcer of other part of right lower leg with fat layer exposed; L97.312 Non-pressure chronic ulcer of right ankle with fat layer exposed; E11.621 Type 2 diabetes mellitus with foot ulcer; E11.59 Type 2 diabetes mellitus with other circulatory complications; I87.311 Chronic venous hypertension (idiopathic) with ulcer of right lower extremity; I87.2 Venous insufficiency (chronic) (peripheral); E11.42 Type 2 diabetes mellitus with diabetic polyneuropathy; I10 Essential (primary) hypertension; I25.10 Atherosclerotic heart disease of native coronary artery without angina pectoris; K21.9 Gastro-esophageal reflux disease without esophagitis; G47.33 Obstructive sleep apnea (adult) (pediatric); G89.29 Other chronic pain ==

== ENCOUNTER 2021-10-05 04:30 | Day surgery (SDC) | payer MEDICARE | END 2021-10-05 23:23 | disposition home or self-care (01) | LOC: WOUND 04:30 | DX: I87.311 Chronic venous hypertension (idiopathic) with ulcer of right lower extremity (principal); E11.622 Type 2 diabetes mellitus with other skin ulcer; L97.519 Non-pressure chronic ulcer of other part of right foot with unspecified severity; E11.621 Type 2 diabetes mellitus with foot ulcer; I87.2 Venous insufficiency (chronic) (peripheral); E11.59 Type 2 diabetes mellitus with other circulatory complications ==

== ENCOUNTER 2021-10-11 01:22 | Day surgery (SDC) | payer MEDICARE | END 2021-10-11 23:32 | disposition home or self-care (01) | LOC: WOUND 01:22 | DX: E11.622 Type 2 diabetes mellitus with other skin ulcer (principal); L97.812 Non-pressure chronic ulcer of other part of right lower leg with fat layer exposed; L97.312 Non-pressure chronic ulcer of right ankle with fat layer exposed; I87.311 Chronic venous hypertension (idiopathic) with ulcer of right lower extremity; E11.621 Type 2 diabetes mellitus with foot ulcer; I87.2 Venous insufficiency (chronic) (peripheral); E11.59 Type 2 diabetes mellitus with other circulatory complications; E11.42 Type 2 diabetes mellitus with diabetic polyneuropathy; I10 Essential (primary) hypertension; G47.33 Obstructive sleep apnea (adult) (pediatric); I25.10 Atherosclerotic heart disease of native coronary artery without angina pectoris; K21.9 Gastro-esophageal reflux disease without esophagitis | CPT/HCPCS: 99406; A9270 ==

== ENCOUNTER 2021-10-18 00:45 | Day surgery (SDC) | payer MEDICARE | END 2021-10-18 23:54 | disposition home or self-care (01) | LOC: WOUND 00:45 | DX: E11.622 Type 2 diabetes mellitus with other skin ulcer (principal); L97.812 Non-pressure chronic ulcer of other part of right lower leg with fat layer exposed; L97.312 Non-pressure chronic ulcer of right ankle with fat layer exposed; I87.311 Chronic venous hypertension (idiopathic) with ulcer of right lower extremity; E11.621 Type 2 diabetes mellitus with foot ulcer; I87.2 Venous insufficiency (chronic) (peripheral); E11.59 Type 2 diabetes mellitus with other circulatory complications; E11.42 Type 2 diabetes mellitus with diabetic polyneuropathy; I10 Essential (primary) hypertension; G47.33 Obstructive sleep apnea (adult) (pediatric); I25.10 Atherosclerotic heart disease of native coronary artery without angina pectoris; K21.9 Gastro-esophageal reflux disease without esophagitis; G89.29 Other chronic pain; M54.50 Low back pain, unspecified | CPT/HCPCS: A9270; Q4133 ==

== ENCOUNTER 2021-11-10 08:00 | Day surgery (SDC) | payer MEDICARE | END 2021-11-10 23:59 | disposition home or self-care (01) | LOC: WOUND 08:00 | DX: E11.622 Type 2 diabetes mellitus with other skin ulcer (principal); L97.312 Non-pressure chronic ulcer of right ankle with fat layer exposed; L97.812 Non-pressure chronic ulcer of other part of right lower leg with fat layer exposed; I87.311 Chronic venous hypertension (idiopathic) with ulcer of right lower extremity; I87.2 Venous insufficiency (chronic) (peripheral); E11.59 Type 2 diabetes mellitus with other circulatory complications; E11.42 Type 2 diabetes mellitus with diabetic polyneuropathy; I10 Essential (primary) hypertension; G47.33 Obstructive sleep apnea (adult) (pediatric); I25.10 Atherosclerotic heart disease of native coronary artery without angina pectoris; K21.9 Gastro-esophageal reflux disease without esophagitis | CPT/HCPCS: A9270; Q4133 ==

== ENCOUNTER 2021-12-22 01:14 | Day surgery (SDC) | payer MEDICARE | END 2021-12-22 23:46 | disposition home or self-care (01) | LOC: WOUND 01:14 | DX: I87.311 Chronic venous hypertension (idiopathic) with ulcer of right lower extremity (principal); E11.622 Type 2 diabetes mellitus with other skin ulcer; L97.812 Non-pressure chronic ulcer of other part of right lower leg with fat layer exposed; L97.312 Non-pressure chronic ulcer of right ankle with fat layer exposed; S90.424A Blister (nonthermal), right lesser toe(s), initial encounter; X58.XXXA Exposure to other specified factors, initial encounter; E11.621 Type 2 diabetes mellitus with foot ulcer; I87.2 Venous insufficiency (chronic) (peripheral); E11.59 Type 2 diabetes mellitus with other circulatory complications; E11.42 Type 2 diabetes mellitus with diabetic polyneuropathy; I10 Essential (primary) hypertension; I25.10 Atherosclerotic heart disease of native coronary artery without angina pectoris; K21.9 Gastro-esophageal reflux disease without esophagitis; G47.33 Obstructive sleep apnea (adult) (pediatric) | CPT/HCPCS: G0463 ==

== ENCOUNTER 2022-01-11 00:49 | Day surgery (SDC) | payer MEDICARE | END 2022-01-11 23:58 | disposition home or self-care (01) | LOC: WOUND 00:49 | DX: I87.311 Chronic venous hypertension (idiopathic) with ulcer of right lower extremity (principal); E11.622 Type 2 diabetes mellitus with other skin ulcer; L97.312 Non-pressure chronic ulcer of right ankle with fat layer exposed; E11.621 Type 2 diabetes mellitus with foot ulcer; L97.512 Non-pressure chronic ulcer of other part of right foot with fat layer exposed; I87.2 Venous insufficiency (chronic) (peripheral); E11.59 Type 2 diabetes mellitus with other circulatory complications; S91.104D Unspecified open wound of right lesser toe(s) without damage to nail, subsequent encounter; X58.XXXD Exposure to other specified factors, subsequent encounter | CPT/HCPCS: G0463 ==

== ENCOUNTER 2022-01-18 01:56 | Day surgery (SDC) | payer MEDICARE | END 2022-01-18 23:18 | disposition home or self-care (01) | LOC: WOUND 01:56 | DX: E11.621 Type 2 diabetes mellitus with foot ulcer (principal); L97.512 Non-pressure chronic ulcer of other part of right foot with fat layer exposed; I87.311 Chronic venous hypertension (idiopathic) with ulcer of right lower extremity; L97.312 Non-pressure chronic ulcer of right ankle with fat layer exposed; S91.104D Unspecified open wound of right lesser toe(s) without damage to nail, subsequent encounter; E11.59 Type 2 diabetes mellitus with other circulatory complications; E11.42 Type 2 diabetes mellitus with diabetic polyneuropathy; E78.1 Pure hyperglyceridemia; G47.33 Obstructive sleep apnea (adult) (pediatric); I25.10 Atherosclerotic heart disease of native coronary artery without angina pectoris; K21.9 Gastro-esophageal reflux disease without esophagitis; G51.0 Bell's palsy | CPT/HCPCS: A9270; G0463 ==

== ENCOUNTER 2022-02-04 03:03 | Day surgery (SDC) | payer MEDICARE | END 2022-02-05 00:49 | disposition home or self-care (01) | LOC: WOUND 03:03 | DX: E11.621 Type 2 diabetes mellitus with foot ulcer (principal); L97.412 Non-pressure chronic ulcer of right heel and midfoot with fat layer exposed; L97.522 Non-pressure chronic ulcer of other part of left foot with fat layer exposed; E11.622 Type 2 diabetes mellitus with other skin ulcer; L97.312 Non-pressure chronic ulcer of right ankle with fat layer exposed; I87.311 Chronic venous hypertension (idiopathic) with ulcer of right lower extremity; I87.2 Venous insufficiency (chronic) (peripheral); E11.59 Type 2 diabetes mellitus with other circulatory complications; S91.104D Unspecified open wound of right lesser toe(s) without damage to nail, subsequent encounter; E11.42 Type 2 diabetes mellitus with diabetic polyneuropathy; E78.1 Pure hyperglyceridemia; I10 Essential (primary) hypertension; G47.33 Obstructive sleep apnea (adult) (pediatric); I25.10 Atherosclerotic heart disease of native coronary artery without angina pectoris; K21.9 Gastro-esophageal reflux disease without esophagitis | CPT/HCPCS: A9270; G0463 ==

== ENCOUNTER 2022-02-18 03:20 | Day surgery (SDC) | payer MEDICARE | END 2022-02-18 23:41 | disposition home or self-care (01) | LOC: WOUND 03:20 | DX: E11.621 Type 2 diabetes mellitus with foot ulcer (principal); L97.512 Non-pressure chronic ulcer of other part of right foot with fat layer exposed; I10 Essential (primary) hypertension; K21.9 Gastro-esophageal reflux disease without esophagitis; E11.42 Type 2 diabetes mellitus with diabetic polyneuropathy; I25.10 Atherosclerotic heart disease of native coronary artery without angina pectoris | CPT/HCPCS: G0463 ==

== ENCOUNTER 2022-03-04 01:57 | Day surgery (SDC) | payer MEDICARE | END 2022-03-04 23:42 | disposition home or self-care (01) | LOC: WOUND 01:57 | DX: E11.621 Type 2 diabetes mellitus with foot ulcer (principal); L97.512 Non-pressure chronic ulcer of other part of right foot with fat layer exposed; I87.311 Chronic venous hypertension (idiopathic) with ulcer of right lower extremity; I87.2 Venous insufficiency (chronic) (peripheral); E11.59 Type 2 diabetes mellitus with other circulatory complications; S91.104D Unspecified open wound of right lesser toe(s) without damage to nail, subsequent encounter; E11.42 Type 2 diabetes mellitus with diabetic polyneuropathy; E78.1 Pure hyperglyceridemia; I10 Essential (primary) hypertension; I25.10 Atherosclerotic heart disease of native coronary artery without angina pectoris; K21.9 Gastro-esophageal reflux disease without esophagitis | CPT/HCPCS: A9270 ==

== ENCOUNTER 2022-03-22 08:00 | Day surgery (SDC) | payer MEDICARE | END 2022-03-22 23:59 | disposition home or self-care (01) | LOC: WOUND 08:00 | DX: E11.621 Type 2 diabetes mellitus with foot ulcer (principal); L97.512 Non-pressure chronic ulcer of other part of right foot with fat layer exposed; S80.811A Abrasion, right lower leg, initial encounter; I87.2 Venous insufficiency (chronic) (peripheral); I87.311 Chronic venous hypertension (idiopathic) with ulcer of right lower extremity | CPT/HCPCS: G0463 ==

== ENCOUNTER 2022-12-08 23:53 | Emergency (ER) | payer MEDICARE ==
[~2022-12-08] VITALS: Ht 190.5 cm; Wt 133.8 kg
[2022-12-09 00:32] LABS: BASOPHILS ABSOLUTE AUTO 0.05 K/mm3 (0.00-0.23); BASOPHILS PERCENT AUTO 1 % (0-2); EOSINOPHILS ABSOLUTE AUTO 0.18 K/mm3 (0.00-0.68); EOSINOPHILS PERCENT AUTO 2 % (0-6); Hematocrit 43.2 % (37.0-53.0); Hemoglobin 14.5 g/dL (13.5-17.5); IMMATURE GRAN ABSOLUTE AUTO 0.01 K/mm3 (0.00-0.10); IMMATURE GRAN PERCENT AUTO 0 % (0-1); LYMPHOCYTES PERCENT AUTO 21 % (21-46); MONOCYTES ABSOLUTE AUTO 0.68 K/mm3 (0.16-1.47); MONOCYTES PERCENT AUTO 9 % (4-13); Mean Corpuscular HGB 30.3 pg (26.0-34.0); Mean Corpuscular HGB Conc 33.6 g/dL (31.5-36.5); Mean Corpuscular Volume 90 fL (80-100); Mean Platelet Volume 9.7 fL (9.1-12.4); NEUTROPHILS ABSOLUTE AUTO 5.34 K/mm3 (1.96-9.15); NEUTROPHILS PERCENT AUTO 67 % (41-73); Platelet Count 526 K/mm3 (150-400); RDW Coefficient Variation 13.7 % (11.7-14.2); RDW Standard Deviation 45.4 fL (35.1-46.3); Red Blood Cell Count 4.79 M/mm3 (4.30-5.90); White Blood Cell Count 7.96 K/mm3 (4.00-11.30)
[2022-12-09 00:45] LABS: Albumin, Blood 3.2 g/dL (3.4-5.0); Bilirubin, Total 0.3 mg/dL (0.1-1.0); Bun/Creatinine Ratio 14.5 (12.0-20.0); Calcium, Blood 8.5 mg/dL (8.5-10.1); Creatinine, Blood 1.31 mg/dL (0.60-1.20); Globulin, Blood 3.2 g/dL (2.2-4.0); Potassium, Blood 4.5 mmol/L (3.5-5.5); Total Protein, Blood 6.4 g/dL (6.4-8.2)
[2022-12-09 00:47] LABS: D-Dimer, Quantitative 0.39 mg/L FEU (0.00-0.52); International Normalized Ratio 1.04; Prothrombin Time Results 10.9 Sec (9.7-11.5)
[2022-12-09] MEDS ORDERED: Crestor40 MG PO (02:10)
[2022-12-09] MEDS ORDERED: MECL25 PO (03:54)
[2022-12-09 04:00] VITALS: BP 106/72
== END 2022-12-09 04:35 | disposition home or self-care (01) ==
LOC: ER 23:53
PROVIDERS: Emergency Medicine
DX: E86.0 Dehydration (principal); N17.9 Acute kidney failure, unspecified; H93.19 Tinnitus, unspecified ear; R55 Syncope and collapse; Z95.0 Presence of cardiac pacemaker; E11.40 Type 2 diabetes mellitus with diabetic neuropathy, unspecified; Z86.718 Personal history of other venous thrombosis and embolism; Z79.82 Long term (current) use of aspirin; Z79.01 Long term (current) use of anticoagulants; W19.XXXA Unspecified fall, initial encounter
CPT/HCPCS: 71045; 80053; 84484; 85025; 85379; 85610; 93005; 93010; 99285-25; A9270

== ENCOUNTER → 2022-12-16 | Outpatient (CLI) | payer MEDICARE | LOC: LAB 14:00 | DX: Z11.3 Encounter for screening for infections with a predominantly sexual mode of transmission (principal) ==

== ENCOUNTER 2023-01-12 12:28 | Inpatient (IN) | payer MEDICARE ==
[~2023-01-12] VITALS: Ht 193 cm; Wt 128.5 kg
[~2023-01-12 12:28] MED LIST changes: +Crestor40 MG PO; +MECL25 PO
[2023-01-12 14:23] LABS: BASOPHILS ABSOLUTE AUTO 0.06 K/mm3 (0.00-0.23); BASOPHILS PERCENT AUTO 1 % (0-2); EOSINOPHILS ABSOLUTE AUTO 0.06 K/mm3 (0.00-0.68); EOSINOPHILS PERCENT AUTO 1 % (0-6); Hematocrit 51.4 % (37.0-53.0); Hemoglobin 17.5 g/dL (13.5-17.5); IMMATURE GRAN ABSOLUTE AUTO 0.03 K/mm3 (0.00-0.10); IMMATURE GRAN PERCENT AUTO 0 % (0-1); LYMPHOCYTES ABSOLUTE AUTO 1.77 K/mm3 (0.84-5.20); LYMPHOCYTES PERCENT AUTO 24 % (21-46); MONOCYTES ABSOLUTE AUTO 0.59 K/mm3 (0.16-1.47); MONOCYTES PERCENT AUTO 8 % (4-13); Mean Corpuscular Volume 88 fL (80-100); Mean Platelet Volume 9.3 fL (9.1-12.4); NEUTROPHILS ABSOLUTE AUTO 4.82 K/mm3 (1.96-9.15); NEUTROPHILS PERCENT AUTO 66 % (41-73); NRBC ABSOLUTE 0.02 K/mm3 (0.00-0.02); NRBC Auto 0.3 /100 WBC (0.0-0.2); Platelet Count 628 K/mm3 (150-400); RDW Coefficient Variation 13.5 % (11.7-14.2); RDW Standard Deviation 43.2 fL (35.1-46.3); Red Blood Cell Count 5.84 M/mm3 (4.30-5.90); White Blood Cell Count 7.33 K/mm3 (4.00-11.30)
[2023-01-12 15:29] LABS: Magnesium, Blood 2.1 mg/dL (1.6-2.4); Thyroid Stimulating Hormone 1.73 uIU/mL (0.360-4.800)
[2023-01-12 15:44] LABS: Albumin, Blood 3.5 g/dL (3.4-5.0); Albumin/Globulin Ratio 0.9 (0.8-1.8); Bilirubin, Total 0.7 mg/dL (0.1-1.0); Bun/Creatinine Ratio 26.4 (12.0-20.0); Calcium, Blood 9.2 mg/dL (8.5-10.1); Creatinine, Blood 1.29 mg/dL (0.60-1.20); Globulin, Blood 3.9 g/dL (2.2-4.0); Potassium, Blood 5.8 mmol/L (3.5-5.5); Total Protein, Blood 7.4 g/dL (6.4-8.2)
[2023-01-12 19:27] LABS: Adenovirus Not Detected (NOT DETECT); Coronavirus 229E Not Detected (NOT DETECT); Coronavirus HKU1 Not Detected (NOT DETECT)
[2023-01-12 19:28] LABS: Bordetella pertussis Not Detected (NOT DETECT); Chlamydophila pneumoniae Not Detected (NOT DETECT); Coronavirus NL63 Not Detected (NOT DETECT); Coronavirus OC43 Not Detected (NOT DETECT); Human Metapneumovirus Not Detected (NOT DETECT); Human Rhinovirus/Enterovirus Not Detected (NOT DETECT); Influenza A/2009-H1 Not Detected (NOT DETECT); Influenza A/H1 Not Detected (NOT DETECT); Influenza A/H3 Not Detected (NOT DETECT); Influenza B Not Detected (NOT DETECT); Mycoplasma pneumoniae Not Detected (NOT DETECT); Parainfluenza Virus 1 Not Detected (NOT DETECT); Parainfluenza Virus 2 Not Detected (NOT DETECT); Parainfluenza Virus 3 Not Detected (NOT DETECT); Parainfluenza Virus 4 Not Detected (NOT DETECT); Respiratory Syncytial Virus Not Detected (NOT DETECT); SARS-Cov-2 (COVID-19), BioFire Not Detected (NOT DETECT)
[2023-01-12] MEDS ORDERED: Ventolin/Prove6.7 GM INH (19:44)
[2023-01-12 21:10] VITALS: BP 129/82
--- NOTE | 2023-01-12 22:30 | NUR ---
NEW ADMIT PT ARRIVED TO ROOM 344 FROM ED ON [facility], TRANSFERED TO BED WITH TRANSFER SHEET AND THREE PERSON ASSIST. BRYAN AT BEDSIDE TO STAY OVERNIGHT WITH PATIENT. PT. ARRIVED ALERT, NO FLUIDS RUNNING AT TIME OF ARRIVAL, ON RA. THIS RN TO ASSUME CARE OF PATIENT.
--- NOTE | 2023-01-13 01:12 | NUR ---
UPDATE NOTIFIED BY LALITO CNA2 OF PATIENT C/O LIVER FEELING HOT WITH PAIN ON RIGHT SIDE, THIS RN WENT AND ASSESSED PATIENTS CURRENTL COMPLAINT, RIGHT SIDE SKIN IS WARM TO TOUCH AND TENDER TO THE TOUCH, PATIENT REPORTS THAT HE HAS HAD THIS FOR A WHILE AND HIS DOCTOR IS AWARE. PATIENTS PAIN ASSESSED AND MEDICATED PER EMAR, COOL PAD APPLIED WITH PILLOW CASE.
--- NOTE | 2023-01-13 02:51 | NUR ---
PATIENT BEGAN GASPING AND COUGHING, WENT TO PATIENTS ROOM OXYGEN STATS DOWN TO 90%, SAT PATIENT UP IN BED, APPLIED OXYGEN VIA NASAL CANNULA AT 2 L/M; O2 STATS IMPROVED TO 95% PATIENT ABLE TO CATCH BREATH AND RETURN BACK TO SLEEP. PATIENT HAS A HISTORY OF SLEEP APNEA, SISTER BRYAN AT BEDSIDE REPORTS THAT PT STOPPED USING HIS CPAP A YEAR AGO. PATIENT IS ON CONTINUOUS BIOX MONITORING.
--- NOTE | 2023-01-13 04:15 | NUR ---
SHIFT SUMMARY PATIENT IS ALERT AND ORIENTED TO PERSON, PLACE, SITUATION, SELF. PT C/O PAIN; PAIN ASSESSED AND TREATED PER EMAR AND NON-PHARMACALOGICAL INTERVENTION. PATIENT DENIES CHEST PAIN OR PRESSURE. SISTER BRYAN IS AT BEDSIDE. PATIENT IS ON 2LPM VIA NASAL CANNULA WITH SPO2 >93% FOLLOWING EPISODE OF GASPING AND COUGHING; SEE PREVIOUS NOTE. PT IS COOPERATIVE WITH CARE AND ABLE TO MAKE NEEDS KNOWN AT THIS TIME. PATIENT HAS NORMAL SALINE INFUSING; SEE EMAR. PATIENT HAS URINAL AT BEDSIDE, CONTINENT AT BASELINE. BED IS LOCKED AND IN THE LOWEST POSITION WITH CALL LIGHT IN REACH. NO S/S OF DISTRESS AT THIS TIME.
[2023-01-13 05:10] VITALS: BP 95/65
[2023-01-13 06:04] LABS: Bun/Creatinine Ratio 30.6 (12.0-20.0); Calcium, Blood 8.1 mg/dL (8.5-10.1); Creatinine, Blood 1.08 mg/dL (0.60-1.20); Magnesium, Blood 1.8 mg/dL (1.6-2.4); Potassium, Blood 4.1 mmol/L (3.5-5.5)
[2023-01-13 07:26] VITALS: BP 101/62
[2023-01-13 07:51] LABS: Source, Urine Clean Catch
[2023-01-13 07:58] LABS: Appearance, Urine Clear (Clear); Blood, Urine Neg (Neg); Color, Urine Yellow (P-Yellow); Glucose Qualitative, Urine 2+ (Neg); Ketones, Urine 1+ (Neg); Leukocyte Esterase, Urine 2+ (Neg); Nitrite, Urine Neg (Neg); Protein, Urine 2+ (Neg); Specific Gravity, Urine 1.025 (1.003-1.022); Urobilinogen, Urine 1+ (Normal)
[2023-01-13 08:12] LABS: Bilirubin, Urine 1+ (Neg)
[2023-01-13 08:13] LABS: Bacteria Few /hpf; Squamous Epithelial Cells Rare /hpf (Few)
[2023-01-13 08:23] LABS: U Amphetamine Screen Not Detected; U Barbituate Screen Not Detected; U Benzodiazapine Screen Not Detected; U Buprenorphine Screen Not Detected; U Cannabinoids Screen Not Detected; U Cocaine Screen Not Detected; U Methadone Screen Not Detected; U Methamphetamine Screen Not Detected; U Opiates Screen Not Detected; U Oxycodone Screen Not Detected; U Phencyclidine Screen Not Detected; U Propoxyphene Screen Not Detected
[2023-01-13 14:46] VITALS: BP 101/61
--- NOTE | 2023-01-13 17:43 | NUR ---
SUMMARY- AAOX4. PHYSICAL THERAPY CLEARED PT TO BE A SBA. PT HAD UNMEASURED VOID IN TOILET AT 1245. PT WAS BLADDER SCANNED AT 1615 AND HAD 149ML. NO NEED TO STRAIGHT CATH PT THIS SHIFT.
--- NOTE | 2023-01-13 19:34 | NUR ---
[id number] RN RECEIVED TELEPHONE VERBAL FROM DR. SANCHEZ TO CHANGE PREGABALIN 75 MG ORDER TO QID. ORDER PLACED.
[2023-01-13 19:40] VITALS: BP 123/68
[2023-01-14 04:45] VITALS: BP 109/52
[2023-01-14 05:35] LABS: BASOPHILS ABSOLUTE AUTO 0.05 K/mm3 (0.00-0.23); BASOPHILS PERCENT AUTO 1 % (0-2); EOSINOPHILS ABSOLUTE AUTO 0.14 K/mm3 (0.00-0.68); EOSINOPHILS PERCENT AUTO 3 % (0-6); Hematocrit 40.4 % (37.0-53.0); Hemoglobin 13.5 g/dL (13.5-17.5); IMMATURE GRAN ABSOLUTE AUTO 0.01 K/mm3 (0.00-0.10); IMMATURE GRAN PERCENT AUTO 0 % (0-1); LYMPHOCYTES ABSOLUTE AUTO 1.71 K/mm3 (0.84-5.20); LYMPHOCYTES PERCENT AUTO 34 % (21-46); MONOCYTES ABSOLUTE AUTO 0.39 K/mm3 (0.16-1.47); MONOCYTES PERCENT AUTO 8 % (4-13); Mean Corpuscular HGB 30.1 pg (26.0-34.0); Mean Corpuscular HGB Conc 33.4 g/dL (31.5-36.5); Mean Corpuscular Volume 90 fL (80-100); Mean Platelet Volume 9.4 fL (9.1-12.4); NEUTROPHILS ABSOLUTE AUTO 2.81 K/mm3 (1.96-9.15); NEUTROPHILS PERCENT AUTO 55 % (41-73); Platelet Count 441 K/mm3 (150-400); RDW Coefficient Variation 13.3 % (11.7-14.2); Red Blood Cell Count 4.49 M/mm3 (4.30-5.90); White Blood Cell Count 5.11 K/mm3 (4.00-11.30)
--- NOTE | 2023-01-14 06:24 | NUR ---
Shift Summary Continent voids into the urinal, no need for bladder scan this shift. Pt did not require O2 tonight, although sister in the room reported at least one incident of apnea. Mepilex placed on R ankle wound. AOx4, slept well t/o the night.
[2023-01-14 06:37] LABS: Anion Gap 4 mmol/L (6-16); Blood Urea Nitrogen 22 mg/dL (8-24); Bun/Creatinine Ratio 24.3 (12.0-20.0); CO2, Blood 25 mmol/L (21-32); Calcium, Blood 8.2 mg/dL (8.5-10.1); Chloride, Blood 110 mmol/L (98-108); Creatinine, Blood 0.91 mg/dL (0.60-1.20); Glomerular Filtration Rate 94 (60-); Glucose, Blood 117 mg/dL (70-99); Phosphorus, Blood 3.1 mg/dL (2.5-4.9); Potassium, Blood 4.4 mmol/L (3.5-5.5); Sodium, Blood 139 mmol/L (136-145)
[2023-01-14 07:27] VITALS: BP 116/92
[2023-01-14] MEDS ORDERED: ACET325 PO (10:54)
== END 2023-01-14 11:44 | disposition home or self-care (01) | DRG 641 ==
LOC: ER 12:28 → MEDS 12:29 → ENPENDDIS 01-14 09:26 → MEDS 01-14 11:44
PROVIDERS: Family Medicine; Student in an Organized Health Care Education/Training Program; ADMIT Nurse Practitioner Acute Care
DX: E87.5 Hyperkalemia (principal); N17.9 Acute kidney failure, unspecified; G47.33 Obstructive sleep apnea (adult) (pediatric); I10 Essential (primary) hypertension; E11.9 Type 2 diabetes mellitus without complications; F17.210 Nicotine dependence, cigarettes, uncomplicated; I25.10 Atherosclerotic heart disease of native coronary artery without angina pectoris; E86.0 Dehydration; I95.9 Hypotension, unspecified; I48.0 Paroxysmal atrial fibrillation; E66.01 Morbid (severe) obesity due to excess calories; Z20.822 Contact with and (suspected) exposure to COVID-19; K21.9 Gastro-esophageal reflux disease without esophagitis; E78.5 Hyperlipidemia, unspecified; Z86.718 Personal history of other venous thrombosis and embolism; Z90.89 Acquired absence of other organs; Z90.49 Acquired absence of other specified parts of digestive tract; Z86.73 Personal history of transient ischemic attack (TIA), and cerebral infarction without residual deficits; Z95.5 Presence of coronary angioplasty implant and graft; Z98.890 Other specified postprocedural states; Z95.0 Presence of cardiac pacemaker; Z68.34 Body mass index [BMI] 34.0-34.9, adult
CPT/HCPCS: 0202U; 36415; 51701; 51798; 71046; 80048; 80053; 80069; 81001; 82533; 82550; 82947; 83735; 84132; 84443; 84484; 85025; 87086; 93005; 93010; 94644; 94664; 94762; 96361; 96372; 96374; 96375; 97110; 97116; 97162; 99285-25; A9270; G0378; J1650; J1815; J3010; J7030; J7040; J7799

== ENCOUNTER 2023-01-28 00:39 | Emergency (ER) | payer MEDICARE ==
[~2023-01-28] VITALS: Ht 190.5 cm; Wt 135.6 kg
[~2023-01-28 00:39] MED LIST changes: +ACET325 PO; +Ventolin/Prove6.7 GM INH
[2023-01-28 00:57] LABS: BASOPHILS ABSOLUTE AUTO 0.06 K/mm3 (0.00-0.23); BASOPHILS PERCENT AUTO 1 % (0-2); EOSINOPHILS ABSOLUTE AUTO 0.23 K/mm3 (0.00-0.68); EOSINOPHILS PERCENT AUTO 4 % (0-6); Hematocrit 40.2 % (37.0-53.0); Hemoglobin 13.1 g/dL (13.5-17.5); IMMATURE GRAN ABSOLUTE AUTO 0.02 K/mm3 (0.00-0.10); IMMATURE GRAN PERCENT AUTO 0 % (0-1); LYMPHOCYTES ABSOLUTE AUTO 2.12 K/mm3 (0.84-5.20); LYMPHOCYTES PERCENT AUTO 32 % (21-46); MONOCYTES ABSOLUTE AUTO 0.52 K/mm3 (0.16-1.47); MONOCYTES PERCENT AUTO 8 % (4-13); Mean Corpuscular HGB 29.9 pg (26.0-34.0); Mean Corpuscular HGB Conc 32.6 g/dL (31.5-36.5); Mean Corpuscular Volume 92 fL (80-100); NEUTROPHILS PERCENT AUTO 56 % (41-73); Platelet Count 503 K/mm3 (150-400); RDW Coefficient Variation 13.9 % (11.7-14.2); RDW Standard Deviation 46.9 fL (35.1-46.3); Red Blood Cell Count 4.38 M/mm3 (4.30-5.90); White Blood Cell Count 6.65 K/mm3 (4.00-11.30)
[2023-01-28 01:15] LABS: Albumin, Blood 3.2 g/dL (3.4-5.0); Albumin/Globulin Ratio 0.9 (0.8-1.8); Bilirubin, Total 0.4 mg/dL (0.1-1.0); Bun/Creatinine Ratio 13.3 (12.0-20.0); Calcium, Blood 8.5 mg/dL (8.5-10.1); Creatinine, Blood 1.13 mg/dL (0.60-1.20); Globulin, Blood 3.5 g/dL (2.2-4.0); Potassium, Blood 4.7 mmol/L (3.5-5.5); Total Protein, Blood 6.7 g/dL (6.4-8.2)
[2023-01-28 03:45] VITALS: BP 129/81
== END 2023-01-28 04:15 | disposition home or self-care (01) ==
LOC: ER 00:39
PROVIDERS: Physician Assistant
DX: S70.01XA Contusion of right hip, initial encounter (principal); E11.40 Type 2 diabetes mellitus with diabetic neuropathy, unspecified; Z86.718 Personal history of other venous thrombosis and embolism; Z79.82 Long term (current) use of aspirin; Z87.891 Personal history of nicotine dependence; W01.0XXA Fall on same level from slipping, tripping and stumbling without subsequent striking against object, initial encounter
CPT/HCPCS: 73502; 80053; 85025; 93005; 93010; 96374; 99284-25; J2765

== ENCOUNTER → 2023-04-25 | Outpatient (CLI) | payer MEDICARE ==
[~2023-04-25] MED LIST changes: +ALBU90OI INH; +AZELASTINE137 MCG/06; +Aspir 8181 MG PO; +DOXY100 PO; -DULO30 PO; +DULO60 PO; +GUAI600T33 PO; -Lisinopril2.5 MG PO; -METO25 PO; +METO25ER PO; +Prinivil10 MG PO
== END ==
LOC: LAB 18:54 → LAB SHORT 18:54
DX: L03.115 Cellulitis of right lower limb (principal)
CPT/HCPCS: 87070; 87075; 87077; 87147; 87186; 87205

== ENCOUNTER 2023-06-19 14:33 | Emergency (ER) | payer OTHER ==
[~2023-06-19] VITALS: Ht 193 cm; Wt 140.6 kg
[2023-06-19] MEDS ORDERED: NS 1,000 ML IV SCH (15:15)
[2023-06-19 15:25] LABS: BASOPHILS ABSOLUTE AUTO 0.04 K/mm3 (0.00-0.23); BASOPHILS PERCENT AUTO 1 % (0-2); EOSINOPHILS ABSOLUTE AUTO 0.08 K/mm3 (0.00-0.68); EOSINOPHILS PERCENT AUTO 1 % (0-6); Hematocrit 46.9 % (37.0-53.0); Hemoglobin 15.7 g/dL (13.5-17.5); IMMATURE GRAN ABSOLUTE AUTO 0.02 K/mm3 (0.00-0.10); IMMATURE GRAN PERCENT AUTO 0 % (0-1); LYMPHOCYTES ABSOLUTE AUTO 1.48 K/mm3 (0.84-5.20); LYMPHOCYTES PERCENT AUTO 18 % (21-46); MONOCYTES ABSOLUTE AUTO 0.74 K/mm3 (0.16-1.47); MONOCYTES PERCENT AUTO 9 % (4-13); Mean Corpuscular HGB 29.8 pg (26.0-34.0); Mean Corpuscular HGB Conc 33.5 g/dL (31.5-36.5); Mean Corpuscular Volume 89 fL (80-100); Mean Platelet Volume 9.2 fL (9.1-12.4); NEUTROPHILS ABSOLUTE AUTO 5.76 K/mm3 (1.96-9.15); NEUTROPHILS PERCENT AUTO 71 % (41-73); Platelet Count 434 K/mm3 (150-400); RDW Coefficient Variation 13.2 % (11.7-14.2); RDW Standard Deviation 43.1 fL (35.1-46.3); Red Blood Cell Count 5.27 M/mm3 (4.30-5.90); White Blood Cell Count 8.12 K/mm3 (4.00-11.30)
[2023-06-19 15:48] LABS: Albumin, Blood 3.6 g/dL (3.4-5.0); Bilirubin, Total 0.8 mg/dL (0.1-1.0); Bun/Creatinine Ratio 14.9 (12.0-20.0); Calcium, Blood 9.2 mg/dL (8.5-10.1); Creatinine, Blood 1.34 mg/dL (0.60-1.20); Globulin, Blood 3.7 g/dL (2.2-4.0); Potassium, Blood 4.4 mmol/L (3.5-5.5); Total Protein, Blood 7.3 g/dL (6.4-8.2)
[2023-06-19 20:28] LABS: Source, Urine Voided
[2023-06-19 20:33] LABS: Blood, Urine 1+ (Neg); Glucose Qualitative, Urine Neg (Neg); Ketones, Urine Neg (Neg); Leukocyte Esterase, Urine 1+ (Neg); Nitrite, Urine Neg (Neg); Protein, Urine 3+ (Neg); Urobilinogen, Urine NORM (Normal)
[2023-06-19 20:46] VITALS: BP 132/85
[2023-06-19 21:07] LABS: Appearance, Urine Clear (Clear); Bilirubin, Urine 1+ (Neg); Color, Urine Yellow (P-Yellow)
[2023-06-19 21:08] LABS: Bacteria Many /hpf; Squamous Epithelial Cells Few /hpf (Few)
[2023-06-19 21:09] LABS: Mucus Light (0-Heavy)
[2023-06-19] MEDS ORDERED: CefTRIAXone Sodium 1,000 MG in NS 50 ML IV ONE (21:15)
[2023-06-19] MEDS ORDERED: CEPH500 PO (21:26)
== END 2023-06-19 22:10 | disposition home or self-care (01) ==
LOC: ER 14:33
PROVIDERS: Emergency Medicine
DX: I95.9 Hypotension, unspecified (principal); N39.0 Urinary tract infection, site not specified; G47.30 Sleep apnea, unspecified; E11.40 Type 2 diabetes mellitus with diabetic neuropathy, unspecified; F17.200 Nicotine dependence, unspecified, uncomplicated; Z79.899 Other long term (current) drug therapy; Z79.82 Long term (current) use of aspirin
CPT/HCPCS: 71046; 80053; 81001; 83880; 84484; 85025; 93005; 93010; 96361; 96365; 99285-25; J0696; J7030

== ENCOUNTER 2023-12-26 04:03 | Day surgery (SDC) | payer OTHER | END 2023-12-26 23:36 | disposition home or self-care (01) | LOC: WOUND 04:03 | DX: E11.622 Type 2 diabetes mellitus with other skin ulcer (principal); L97.312 Non-pressure chronic ulcer of right ankle with fat layer exposed; L97.822 Non-pressure chronic ulcer of other part of left lower leg with fat layer exposed; I87.311 Chronic venous hypertension (idiopathic) with ulcer of right lower extremity; I87.2 Venous insufficiency (chronic) (peripheral); L97.202 Non-pressure chronic ulcer of unspecified calf with fat layer exposed; E11.40 Type 2 diabetes mellitus with diabetic neuropathy, unspecified; I10 Essential (primary) hypertension; G47.33 Obstructive sleep apnea (adult) (pediatric); I25.10 Atherosclerotic heart disease of native coronary artery without angina pectoris; K21.9 Gastro-esophageal reflux disease without esophagitis; G51.0 Bell's palsy; G89.29 Other chronic pain; M54.9 Dorsalgia, unspecified | CPT/HCPCS: G0463 ==

== ENCOUNTER 2024-01-09 02:17 | Day surgery (SDC) | payer OTHER | END 2024-01-09 23:00 | disposition home or self-care (01) | LOC: WOUND 02:17 | DX: I87.311 Chronic venous hypertension (idiopathic) with ulcer of right lower extremity (principal); L97.312 Non-pressure chronic ulcer of right ankle with fat layer exposed; E11.621 Type 2 diabetes mellitus with foot ulcer; I87.2 Venous insufficiency (chronic) (peripheral); E11.42 Type 2 diabetes mellitus with diabetic polyneuropathy; I10 Essential (primary) hypertension; G47.33 Obstructive sleep apnea (adult) (pediatric); I25.10 Atherosclerotic heart disease of native coronary artery without angina pectoris; K21.9 Gastro-esophageal reflux disease without esophagitis; M48.02 Spinal stenosis, cervical region; M50.122 Cervical disc disorder at C5-C6 level with radiculopathy; M50.123 Cervical disc disorder at C6-C7 level with radiculopathy; Z98.1 Arthrodesis status; M47.22 Other spondylosis with radiculopathy, cervical region | CPT/HCPCS: 62302; 72126; G0463; Q9967 ==

== ENCOUNTER 2024-02-14 04:48 | Day surgery (SDC) | payer OTHER | END 2024-02-14 23:00 | disposition home or self-care (01) | LOC: WOUND 04:48 | DX: E11.622 Type 2 diabetes mellitus with other skin ulcer (principal); L97.312 Non-pressure chronic ulcer of right ankle with fat layer exposed; E11.40 Type 2 diabetes mellitus with diabetic neuropathy, unspecified; I10 Essential (primary) hypertension; G47.33 Obstructive sleep apnea (adult) (pediatric); I25.10 Atherosclerotic heart disease of native coronary artery without angina pectoris; K21.9 Gastro-esophageal reflux disease without esophagitis; G51.0 Bell's palsy; G89.29 Other chronic pain; M54.50 Low back pain, unspecified; S81.801D Unspecified open wound, right lower leg, subsequent encounter; E11.621 Type 2 diabetes mellitus with foot ulcer; I87.311 Chronic venous hypertension (idiopathic) with ulcer of right lower extremity; L97.202 Non-pressure chronic ulcer of unspecified calf with fat layer exposed; I87.2 Venous insufficiency (chronic) (peripheral); X58.XXXD Exposure to other specified factors, subsequent encounter | CPT/HCPCS: G0463 ==

== ENCOUNTER 2024-11-15 01:42 | Day surgery (SDC) | payer OTHER ==
[~2024-11-15 01:42] MED LIST changes: +LOSARTAN; +PREG150 PO
== END 2024-11-15 23:00 | disposition home or self-care (01) ==
LOC: WOUND 01:42
DX: E11.622 Type 2 diabetes mellitus with other skin ulcer (principal); L97.812 Non-pressure chronic ulcer of other part of right lower leg with fat layer exposed; L97.312 Non-pressure chronic ulcer of right ankle with fat layer exposed; I87.2 Venous insufficiency (chronic) (peripheral); E11.51 Type 2 diabetes mellitus with diabetic peripheral angiopathy without gangrene; E11.42 Type 2 diabetes mellitus with diabetic polyneuropathy; J44.9 Chronic obstructive pulmonary disease, unspecified; I10 Essential (primary) hypertension; I25.10 Atherosclerotic heart disease of native coronary artery without angina pectoris; G51.0 Bell's palsy; K21.9 Gastro-esophageal reflux disease without esophagitis
CPT/HCPCS: G0463

== ENCOUNTER 2024-11-21 02:17 | Day surgery (SDC) | payer OTHER | END 2024-11-21 23:00 | disposition home or self-care (01) | LOC: WOUND 02:17 | DX: L97.812 Non-pressure chronic ulcer of other part of right lower leg with fat layer exposed (principal); L97.312 Non-pressure chronic ulcer of right ankle with fat layer exposed; I87.2 Venous insufficiency (chronic) (peripheral); E11.51 Type 2 diabetes mellitus with diabetic peripheral angiopathy without gangrene; E11.42 Type 2 diabetes mellitus with diabetic polyneuropathy; J44.9 Chronic obstructive pulmonary disease, unspecified; I10 Essential (primary) hypertension ==

== ENCOUNTER 2024-11-28 03:24 | Day surgery (SDC) | payer OTHER ==
[2024-11-28] MEDS ORDERED: Lidocaine HCl 4% Cream 5 GM ONE (11:12)
== END 2024-11-28 23:00 | disposition home or self-care (01) ==
LOC: WOUND 03:24
DX: L97.312 Non-pressure chronic ulcer of right ankle with fat layer exposed (principal); I87.2 Venous insufficiency (chronic) (peripheral); E11.51 Type 2 diabetes mellitus with diabetic peripheral angiopathy without gangrene; E11.42 Type 2 diabetes mellitus with diabetic polyneuropathy; J44.9 Chronic obstructive pulmonary disease, unspecified; I10 Essential (primary) hypertension
CPT/HCPCS: A9270; G0463

== ENCOUNTER → 2024-11-28 | Outpatient (CLI) | payer OTHER | LOC: LAB 10:22 → LAB SHORT 10:22 | DX: N39.0 Urinary tract infection, site not specified (principal); R31.9 Hematuria, unspecified | CPT/HCPCS: 87086 ==

== ENCOUNTER 2024-12-16 23:47 | Emergency (ER) | payer OTHER ==
[~2024-12-16] VITALS: Ht 193 cm; Wt 158.8 kg
[2024-12-17 00:27] LABS: BASOPHILS ABSOLUTE AUTO 0.04 K/mm3 (0.00-0.23); BASOPHILS PERCENT AUTO 1 % (0-2); EOSINOPHILS ABSOLUTE AUTO 0.15 K/mm3 (0.00-0.68); EOSINOPHILS PERCENT AUTO 2 % (0-6); Hematocrit 42.5 % (37.0-53.0); Hemoglobin 13.4 g/dL (13.5-17.5); IMMATURE GRAN ABSOLUTE AUTO 0.02 K/mm3 (0.00-0.10); IMMATURE GRAN PERCENT AUTO 0 % (0-1); LYMPHOCYTES ABSOLUTE AUTO 1.45 K/mm3 (0.84-5.20); LYMPHOCYTES PERCENT AUTO 23 % (21-46); MONOCYTES ABSOLUTE AUTO 0.62 K/mm3 (0.16-1.47); MONOCYTES PERCENT AUTO 10 % (4-13); Mean Corpuscular HGB Conc 31.5 g/dL (31.5-36.5); Mean Corpuscular Volume 94 fL (80-100); NEUTROPHILS ABSOLUTE AUTO 4.02 K/mm3 (1.96-9.15); NEUTROPHILS PERCENT AUTO 64 % (41-73); NRBC ABSOLUTE 0.00 K/mm3 (0.00-0.02); NRBC Auto 0.0 /100 WBC (0.0-0.2); Platelet Count 293 K/mm3 (150-400); RDW Coefficient Variation 14.5 % (11.7-14.2); RDW Standard Deviation 50.5 fL (35.1-46.3)
[2024-12-17 00:48] LABS: Alanine Aminotransfer (ALT/SGP 15.0 U/L (12-78); Albumin, Blood 3.2 g/dL (3.4-5.0); Albumin/Globulin Ratio 0.8 (0.8-1.8); Anion Gap 8.0 mmol/L (3-11); Aspartate Aminotrans (AST/SGOT 18.0 U/L (12-37); Bilirubin, Total 0.5 mg/dL (0.1-1.0); Blood Urea Nitrogen 18.0 mg/dL (8-24); CO2, Blood 30.0 mmol/L (21-32); Calcium, Blood 8.8 mg/dL (8.5-10.1); Chloride, Blood 102.0 mmol/L (98-108); Creatinine, Blood 1.02 mg/dL (0.60-1.20); Globulin, Blood 4.1 g/dL (2.2-4.0); Glucose, Blood 344.0 mg/dL (70-99); Potassium, Blood 4.7 mmol/L (3.5-5.5); Sodium, Blood 135.0 mmol/L (136-145); Total Protein, Blood 7.3 g/dL (6.4-8.2)
[2024-12-17 01:15] LABS: Magnesium, Blood 1.7 mg/dL (1.6-2.4)
[2024-12-17 03:30] VITALS: BP 135/112
== END 2024-12-17 03:55 | disposition home or self-care (01) ==
LOC: ER 23:47
PROVIDERS: Student in an Organized Health Care Education/Training Program
DX: R06.02 Shortness of breath (principal); R10.13 Epigastric pain; J44.9 Chronic obstructive pulmonary disease, unspecified; G47.30 Sleep apnea, unspecified; E11.40 Type 2 diabetes mellitus with diabetic neuropathy, unspecified; F17.200 Nicotine dependence, unspecified, uncomplicated; Z79.899 Other long term (current) drug therapy
CPT/HCPCS: 71046; 74177; 80053; 83690; 83735; 84484; 85025; Q9967

== ENCOUNTER 2024-12-30 00:24 | Day surgery (SDC) | payer OTHER | END 2024-12-30 23:35 | disposition home or self-care (01) | LOC: WOUND 00:24 | DX: E11.621 Type 2 diabetes mellitus with foot ulcer (principal); L97.522 Non-pressure chronic ulcer of other part of left foot with fat layer exposed; E11.622 Type 2 diabetes mellitus with other skin ulcer; L97.312 Non-pressure chronic ulcer of right ankle with fat layer exposed; I87.2 Venous insufficiency (chronic) (peripheral); E11.42 Type 2 diabetes mellitus with diabetic polyneuropathy; J44.9 Chronic obstructive pulmonary disease, unspecified; I10 Essential (primary) hypertension; E11.51 Type 2 diabetes mellitus with diabetic peripheral angiopathy without gangrene; I25.10 Atherosclerotic heart disease of native coronary artery without angina pectoris; E78.1 Pure hyperglyceridemia; G47.33 Obstructive sleep apnea (adult) (pediatric); K21.9 Gastro-esophageal reflux disease without esophagitis | CPT/HCPCS: G0463 ==

== ENCOUNTER → 2025-01-09 | Outpatient (CLI) | payer OTHER ==
[2025-01-09 15:40] LABS: Creatinine, Urine Random 135.0 mg/dL (27.00-270.00); Microalb/Creat Ratio UR, Rand 91.852 mg/g (0.000-30.000); Microalbumin, Random Urine 124.0 mg/L (0.000-20.000)
== END ==
LOC: LAB 12:03 → LAB SHORT 12:03
PROVIDERS: Family Medicine
DX: E11.65 Type 2 diabetes mellitus with hyperglycemia (principal); E11.36 Type 2 diabetes mellitus with diabetic cataract; E11.42 Type 2 diabetes mellitus with diabetic polyneuropathy; E11.43 Type 2 diabetes mellitus with diabetic autonomic (poly)neuropathy; E11.51 Type 2 diabetes mellitus with diabetic peripheral angiopathy without gangrene; E11.59 Type 2 diabetes mellitus with other circulatory complications; E11.610 Type 2 diabetes mellitus with diabetic neuropathic arthropathy; E11.621 Type 2 diabetes mellitus with foot ulcer
CPT/HCPCS: 82043; 82570

== ENCOUNTER → 2025-01-27 | Outpatient (CLI) | payer OTHER ==
[~2025-01-27] MED LIST changes: +METO10 PO; +ONDA4ODT MM
== END ==
LOC: LAB SHORT 12:08 → LAB 12:08
DX: M86.172 Other acute osteomyelitis, left ankle and foot (principal)
CPT/HCPCS: 88305; 88311

== ENCOUNTER 2025-01-31 11:56 | Emergency (ER) | payer OTHER ==
[~2025-01-31] VITALS: Ht 193 cm; Wt 158.8 kg
[~2025-01-31 11:56] MED LIST changes: -METO10 PO; -ONDA4ODT MM
[2025-01-31] MEDS ORDERED: NS 500 ML IV SCH (12:35)
[2025-01-31] MEDS ORDERED: Ketorolac Tromethamine 30mg Vial IV ONE (12:50)
[2025-01-31] MEDS ORDERED: Ondansetron HCl 2 MG / ML 2ML Vial IV ONE (12:50)
[2025-01-31 12:56] LABS: BASOPHILS ABSOLUTE AUTO 0.04 K/mm3 (0.00-0.23); BASOPHILS PERCENT AUTO 1 % (0-2); EOSINOPHILS ABSOLUTE AUTO 0.06 K/mm3 (0.00-0.68); EOSINOPHILS PERCENT AUTO 1 % (0-6); Hematocrit 41.4 % (37.0-53.0); Hemoglobin 13.8 g/dL (13.5-17.5); IMMATURE GRAN ABSOLUTE AUTO 0.03 K/mm3 (0.00-0.10); IMMATURE GRAN PERCENT AUTO 1 % (0-1); LYMPHOCYTES ABSOLUTE AUTO 0.57 K/mm3 (0.84-5.20); LYMPHOCYTES PERCENT AUTO 9 % (21-46); MONOCYTES ABSOLUTE AUTO 0.52 K/mm3 (0.16-1.47); MONOCYTES PERCENT AUTO 8 % (4-13); Mean Corpuscular HGB Conc 33.3 g/dL (31.5-36.5); Mean Corpuscular Volume 92 fL (80-100); NEUTROPHILS ABSOLUTE AUTO 4.98 K/mm3 (1.96-9.15); NEUTROPHILS PERCENT AUTO 80 % (41-73); NRBC ABSOLUTE 0.00 K/mm3 (0.00-0.02); NRBC Auto 0.0 /100 WBC (0.0-0.2); Platelet Count 323 K/mm3 (150-400); RDW Coefficient Variation 13.1 % (11.7-14.2); RDW Standard Deviation 44.3 fL (35.1-46.3)
[2025-01-31 13:37] LABS: Alanine Aminotransfer (ALT/SGP 14.0 U/L (12-78); Albumin, Blood 3.1 g/dL (3.4-5.0); Albumin/Globulin Ratio 0.9 (0.8-1.8); Anion Gap 7.0 mmol/L (3-11); Aspartate Aminotrans (AST/SGOT 21.0 U/L (12-37); Bilirubin, Total 1.0 mg/dL (0.1-1.0); Blood Urea Nitrogen 15.0 mg/dL (8-24); C-REACTIVE PROTEIN, EXT RANGE 5.78 mg/dL (0.000-0.300); CO2, Blood 31.0 mmol/L (21-32); Calcium, Blood 8.1 mg/dL (8.5-10.1); Chloride, Blood 102.0 mmol/L (98-108); Creatinine, Blood 0.71 mg/dL (0.60-1.20); Globulin, Blood 3.5 g/dL (2.2-4.0); Glucose, Blood 212.0 mg/dL (70-99); Magnesium, Blood 1.5 mg/dL (1.6-2.4); Potassium, Blood 3.9 mmol/L (3.5-5.5); Sodium, Blood 136.0 mmol/L (136-145); Total Protein, Blood 6.6 g/dL (6.4-8.2)
[2025-01-31] MEDS ORDERED: Magnesium Sulf 2 GM/Water 50ML 50 ML IV ONE (13:55)
[2025-01-31] MEDS ORDERED: Morphine Sulfate 4 MG/1 ML Injection IV ONE ×2 (14:15→14:30)
[2025-01-31 14:17] LABS: Influenza A, PCR NEGATIVE (NEGATIVE); Influenza B, PCR NEGATIVE (NEGATIVE); Resp Syncytial Virus, PCR NEGATIVE (NEGATIVE); SARS-Cov-2 (COVID-19) PCR, MMC NEGATIVE (NEGATIVE)
[2025-01-31] MEDS ORDERED: Metoclopramide HCl 5MG / ML 2ML Vial IV ONE (14:30)
[2025-01-31] MEDS ORDERED: DiphenhydrAMINE HCl 50 MG/ML 1ML Vial IV ONE (14:30)
[2025-01-31] MEDS ORDERED: Atropine/Scopalam/Hyoscam/PB 5 ML UDC PO ONE (14:30)
[2025-01-31 14:40] LABS: Source, Urine Clean Catch
[2025-01-31 14:57] LABS: Bilirubin, Urine Neg (Neg); Color, Urine Amber (P-Yellow); Glucose Qualitative, Urine 2+ (Neg); Ketones, Urine 3+ (Neg); Leukocyte Esterase, Urine Neg (Neg); Protein, Urine 3+ (Neg); Specific Gravity, Urine 1.015 (1.003-1.022); Urobilinogen, Urine 1+ (Normal)
[2025-01-31 15:06] LABS: Red Blood Cells, Urine 0-2 /hpf (0-2)
[2025-01-31] MEDS ORDERED: ONDA4ODT MM (15:42)
[2025-01-31] MEDS ORDERED: METO10 PO (15:42)
[2025-01-31 16:45] VITALS: BP 120/77
== END 2025-01-31 17:08 | disposition home or self-care (01) ==
LOC: ER 11:56
PROVIDERS: Student in an Organized Health Care Education/Training Program
DX: B34.9 Viral infection, unspecified (principal); R10.84 Generalized abdominal pain; R53.81 Other malaise; R11.0 Nausea; R19.7 Diarrhea, unspecified; Z79.2 Long term (current) use of antibiotics; Z79.899 Other long term (current) drug therapy; G47.33 Obstructive sleep apnea (adult) (pediatric); E11.40 Type 2 diabetes mellitus with diabetic neuropathy, unspecified; F17.200 Nicotine dependence, unspecified, uncomplicated
CPT/HCPCS: 74177; 80053; 81001; 82947; 83735; 85025; 85651; 86140; 87637; 93005; 93010; 96365; 96375; 99284-25; A9270; J1200; J1885; J2270; J2405; J2765; J3475; J7030; Q9967

== ENCOUNTER 2025-03-17 12:58 | Emergency (ER) | payer OTHER ==
[~2025-03-17] VITALS: Ht 193 cm; Wt 145.2 kg
[~2025-03-17 12:58] MED LIST changes: +DESV50 PO; +FURO40 PO; +JARDIANCE10 MG PO; +LISI10 PO; +METO10 PO; +NICO21TP TOP; +ONDA4ODT MM; +OXYC5 PO; +Pentoxifylline400 MG PO; +WARF5 PO
[2025-03-17] MEDS ORDERED: Ketorolac Tromethamine 30mg Vial IV ONE (14:05)
[2025-03-17 14:33] LABS: BASOPHILS ABSOLUTE AUTO 0.04 K/mm3 (0.00-0.23); BASOPHILS PERCENT AUTO 1 % (0-2); EOSINOPHILS ABSOLUTE AUTO 0.06 K/mm3 (0.00-0.68); EOSINOPHILS PERCENT AUTO 1 % (0-6); Hematocrit 53.5 % (37.0-53.0); Hemoglobin 17.3 g/dL (13.5-17.5); IMMATURE GRAN ABSOLUTE AUTO 0.02 K/mm3 (0.00-0.10); IMMATURE GRAN PERCENT AUTO 0 % (0-1); LYMPHOCYTES ABSOLUTE AUTO 1.08 K/mm3 (0.84-5.20); LYMPHOCYTES PERCENT AUTO 16 % (21-46); MONOCYTES ABSOLUTE AUTO 0.59 K/mm3 (0.16-1.47); MONOCYTES PERCENT AUTO 9 % (4-13); Mean Corpuscular HGB Conc 32.3 g/dL (31.5-36.5); Mean Corpuscular Volume 90 fL (80-100); NEUTROPHILS ABSOLUTE AUTO 4.89 K/mm3 (1.96-9.15); NEUTROPHILS PERCENT AUTO 73 % (41-73); NRBC ABSOLUTE 0.00 K/mm3 (0.00-0.02); NRBC Auto 0.0 /100 WBC (0.0-0.2); Platelet Count 334 K/mm3 (150-400); RDW Coefficient Variation 14.3 % (11.7-14.2); RDW Standard Deviation 47.2 fL (35.1-46.3)
[2025-03-17 14:49] LABS: CORONAVIRUS COVID-19 AG Negative (NEGATIVE)
[2025-03-17 14:58] LABS: Alanine Aminotransfer (ALT/SGP 17.0 U/L (12-78); Albumin, Blood 3.8 g/dL (3.4-5.0); Albumin/Globulin Ratio 1.0 (0.8-1.8); Anion Gap 7.0 mmol/L (3-11); Aspartate Aminotrans (AST/SGOT 27.0 U/L (12-37); Bilirubin, Total 0.9 mg/dL (0.1-1.0); Blood Urea Nitrogen 26.0 mg/dL (8-24); CO2, Blood 28.0 mmol/L (21-32); Calcium, Blood 9.3 mg/dL (8.5-10.1); Chloride, Blood 105.0 mmol/L (98-108); Creatinine, Blood 1.05 mg/dL (0.60-1.20); Globulin, Blood 3.9 g/dL (2.2-4.0); Glucose, Blood 175.0 mg/dL (70-99); Potassium, Blood 4.9 mmol/L (3.5-5.5); Sodium, Blood 135.0 mmol/L (136-145); Total Protein, Blood 7.7 g/dL (6.4-8.2)
[2025-03-17 15:30] VITALS: BP 157/88
== END 2025-03-17 15:55 | disposition home or self-care (01) ==
LOC: ER 12:58
PROVIDERS: Emergency Medicine
DX: R53.81 Other malaise (principal); R53.83 Other fatigue; R63.0 Anorexia; R68.83 Chills (without fever); R68.89 Other general symptoms and signs; E11.40 Type 2 diabetes mellitus with diabetic neuropathy, unspecified; I50.20 Unspecified systolic (congestive) heart failure; F17.200 Nicotine dependence, unspecified, uncomplicated; G47.33 Obstructive sleep apnea (adult) (pediatric); J44.9 Chronic obstructive pulmonary disease, unspecified; Z95.5 Presence of coronary angioplasty implant and graft; Z79.82 Long term (current) use of aspirin; Z79.52 Long term (current) use of systemic steroids; Z79.84 Long term (current) use of oral hypoglycemic drugs; Z79.899 Other long term (current) drug therapy
CPT/HCPCS: 71045; 80053; 83880; 84484; 85025; 87428-QW; 93005; 93010; 96374; 99284-25; J1885